=== PATIENT | female | born 1940 | race Caucasian/White ===

== ENCOUNTER 2019-02-12 06:52 | Day surgery (SDC) | payer MEDICARE, OTHER ==
[~2019-02-12 06:52] MED LIST: Midazolam 1 MG/ML 2 ML SDV ONE; fentaNYL 100 MCG/2 ML SDV ONE
[2019-02-12] MEDS ORDERED: Midazolam 1 MG/ML 2 ML SDV IV ONE ×3 (06:53→08:22)
[2019-02-12] MEDS ORDERED: fentaNYL 100 MCG/2 ML SDV IV ONE ×3 (06:53→08:19)
[2019-02-12] MEDS ORDERED: Dextrose 5%-0.45% NaCl 1,000 ML IV SCH (07:00)
--- NOTE | 2019-02-12 11:12 | OR ---
DATE: 02/12/2019 PROCEDURES: Total colonoscopy, NBI, cold snare polypectomy, and multiple pinch biopsies. INSTRUMENT USED: PCF-H190DL Olympus video colonoscope. PREMEDICATIONS: Fentanyl 100 mcg intravenous, Versed 1.5 mg intravenous, nasal O2 cannula. The procedure was done under pulse oximetry, BP recording, and back order clerk. INDICATION: The patient with Hemoccult positive stools and iron deficiency anemia. Colonoscopic examination is done for detection of any polypoid lesions and removal, endoscopic hemostasis therapy if needed. DESCRIPTION OF PROCEDURE: Initial rectal exam was unremarkable. Rigid anoscopy was normal. The colonoscope was passed with ease. Scattered diverticula were noted in the distal left colon along with deformity. The colon was found to be tortuous and redundant, exam a bit prolonged. The scope was passed up to the ileocecal area. Photographs were taken of the cecum, where large circumferential malignant mass was noted, NBI views were obtained, multiple pinch biopsies were obtained and sent for histopathology. No bleeding was noted from any of the visualized areas at the commencement of the examination. There was large amount of fecal material that had to be aspirated. The bowel preparation was found to be adequate, [place] scale 2 in all the regions. No vascular ectasia. No large isolated ulcerations seen. No evidence of diffuse inflammatory bowel disease in the form of friability, contact bleeding, or ulcerations. In the distal ascending colon, 5 mm sized benign-appearing polyp was noted, photograph was taken, cold snare polypectomy was done. The tissue was retrieved and sent for histopathology. Numerous diminutive scattered polyps were noted. More than 1 cm sessile polyps were also noted in the distal ascending colon, as well as mid transverse colon. Probing the proximal sides of folds and flexures using adequate distention and clearing up the stool material, withdrawal of the scope was made. No bleeding was noted from any of the visualized areas at the completion of examination. IMPRESSION: 1. Diverticulosis. 2. Cecal malignant mass. 3. Multiple colonic polyps. The patient tolerated the procedure well. [facility] /[id number]
--- NOTE | 2019-02-12 11:51 | LETTER ---
02/12/2019 Jeannine Stafford MD [address] [place] [address], [place] [address] RE: MYRONJOAO : [address] Stafford: Ms. Joao Simons had colonoscopic examination done this morning and she tolerated the procedure well. I herewith send a copy of the endoscopy note and photographs for your review. Thank you. Sincerely, [facility] /[id number]
[2019-02-12 13:04] VITALS: BP 148/57; PULSE 78
== END 2019-02-12 11:09 | disposition home or self-care (01) ==
LOC: DL.ENDO 06:52
PROVIDERS: ATTEND Internal Medicine Gastroenterology
DX: D12.2 Benign neoplasm of ascending colon (principal); K63.89 Other specified diseases of intestine; D50.9 Iron deficiency anemia, unspecified; Q43.8 Other specified congenital malformations of intestine; K57.30 Diverticulosis of large intestine without perforation or abscess without bleeding; I10 Essential (primary) hypertension; E11.9 Type 2 diabetes mellitus without complications; E78.5 Hyperlipidemia, unspecified; E66.09 Other obesity due to excess calories; Z80.0 Family history of malignant neoplasm of digestive organs; Z90.49 Acquired absence of other specified parts of digestive tract; Z88.0 Allergy status to penicillin; Z88.2 Allergy status to sulfonamides; Z88.1 Allergy status to other antibiotic agents; Z68.33 Body mass index [BMI] 33.0-33.9, adult
CPT/HCPCS: 45380; 45385; 82962; J2250; J3010; J7042

== ENCOUNTER 2019-03-25 10:02 | Inpatient (IN) | payer MEDICARE, OTHER ==
[2019-03-25] MEDS ORDERED: Ondansetron 4 MG Tab.DIS PO PRN (12:37)
[2019-03-25] MEDS ORDERED: Acetaminophen 325 MG Tab PO PRN (12:37)
[2019-03-25] MEDS ORDERED: oxyCODONE 5 MG Tab PO PRN (12:37)
--- NOTE | 2019-03-25 14:47 | PCM.HP ---
H&P History of Present Illness - General Date of Service: 03/25/19 Admit Problem/Dx: Admission Diagnosis/Problem Admission Diagnosis/Problem Weakness Source of Information: Patient, Old Records - History of Present Illness Initial Comments - Free Text/Narative: Ms. Simons is a 79 yo female with past medical history significant for dyslipidemia, hypertension, type diabetes CKD stage III, lower extremity edema, cecal mass concerning for malignancy and is s/p elective laparoscopic-assisted ileocecectomy under general anesthesia. 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 Patient was transferred here for reconditioning. Patient said that she is able to have 2 bowel movements yesterday. No abdominal pain at this point. No other complaints. Patient has Bruno in place and she was told that it should be removed today. Lower Abdomen Pain Score (Numeric/FACES): 3 - Related Data Allergies/Adverse Reactions: Allergies Allergy/AdvReac Type Severity Reaction Status Date / Time ampicillin Allergy Cannot Verified 03/25/19 10:58 Remember metronidazole Allergy Cannot Verified 03/25/19 10:58 Remember Penicillins Allergy Cannot Verified 03/25/19 10:58 Remember sulfamethoxazole Allergy Cannot Verified 03/25/19 10:58 [From Bactrim] Remember Tetracyclines Allergy Cannot Verified 03/25/19 10:58 Remember trimethoprim [From Bactrim] Allergy Cannot Verified 03/25/19 10:58 Remember Home Medications: Home Meds Insulin Lispro [Humalog] 5 units SQ TIDMEALS 04/24/15 [History] Propranolol HCl [Propranolol] 20 mg PO BID 04/24/15 [History] atorvaSTATin [Lipitor] 40 mg PO DAILY 04/24/15 [History] metFORMIN HCl [Metformin HCl] 1,000 mg PO BID 04/24/15 [History] Aspirin [Halfprin] 81 mg PO BEDTIME 07/03/15 [History] Budesonide [Pulmicort] 1 vial INH BID PRN 07/03/15 [History] Insulin Glarg,Human.Rec.Analog [Lantus] 14 units INJECT BEDTIME 07/03/15 [ History] Ipratropium/Albuterol Sulfate [Iprat-Albut 0.5-3(2.5) mg/3 ml] 1 vial INH TID [History] Latanoprost [Xalatan 0.005% Ophth Soln] 1 applic EYEBOTH BEDTIME 07/03/15 [ History] Multivitamin [Multivitamins] 1 tab PO DAILY 07/03/15 [History] Carbidopa/Levodopa [Carbidopa-Levodopa 25-100 Tab] 1.5 tab PO TID 02/11/19 [ History] Midodrine 2.5 mg PO TID 02/11/19 [History] Anastrozole [Arimidex] 1 mg PO DAILY 02/12/19 [History] Docusate Sodium 100 mg PO DAILY PRN 02/12/19 [History] Fludrocortisone [Florinef] 0.1 mg PO DAILY 02/12/19 [History] metOLazone [Metolazone] 2.5 mg PO .MON&Fri02/12/19 [History] Past Medical History HEENT History: Reports: Cataract, Impaired Vision, Sinusitis Cardiovascular History: Reports: High Cholesterol, Hypertension, Other (See Below) Other Cardiovascular History: EDEMA Respiratory History: Reports: COPD, Other (See Below) Other Respiratory History: BRONCHIECTASIS; URI, ?FIBROSIS RECENT DIAGNOSIS Gastrointestinal History: Reports: Chronic Constipation Genitourinary History: Reports: Chronic Renal Insuffiency, Urinary Incontinence , Other (See Below) Other Genitourinary History: CKD STAGE III; CYST OF LEFT KIDNEY FLAME BURNER History: Reports: Musculoskeletal History: Reports: Arthritis, Osteoporosis, Other (See Below) Other Musculoskeletal History: BONE METABOLISM DISORDER Neurological History: Reports: Parkinson's Psychiatric History: Reports: Anxiety, Depression Endocrine/Metabolic History: Reports: Diabetes, Type II, Obesity/BMI 30+, Osteoporosis Hematologic History: Reports: Anemia, Other (See Below) Other Hematologic History: MICROALBUMINURIA Immunologic History: Reports: None Oncologic (Cancer) History: Reports: Breast, Colon Dermatologic History: Reports: None - Infectious Disease History Other Infectious Disease History: DOESN'T RECALL - Past Surgical History Head Surgeries/Procedures: Reports: None HEENT Surgical History: Reports: Cataract Surgery Cardiovascular Surgical History: Reports: None Respiratory Surgical History: Reports: None GI Surgical History: Reports: Cholecystectomy, Colonoscopy, Other (See Below) Other GI Surgeries/Procedures: hemicolectomy Female Surgical History: Reports: None Endocrine Surgical History: Reports: None Neurological Surgical History: Reports: None Musculoskeletal Surgical History: Reports: Knee Replacement, Other (See Below) Other Musculoskeletal Surgeries/Procedures:: BILAT KNEE REPLACEMENT Oncologic Surgical History: Reports: Biopsy of Breast, Lumpectomy Dermatological Surgical History: Reports: None Social & Family History - Family History Family Medical History: Noncontributory - Tobacco Use Smoking Status *Q: Never Smoker Second Hand Smoke Exposure: No - Caffeine Use Caffeine Use: Reports: Coffee, Soda, Tea Other Caffeine Use: SOME - Recreational Drug Use Recreational Drug Use: No H&P Review of Systems - Review of Systems: Review Of Systems: Comprehensive ROS is negative, except as noted in HPI. Exam - Exam Exam: See Below - Vital Signs Vital Signs: Last Vital Signs Temp 36.6 C 03/25/19 12:37 Pulse 66 03/25/19 12:37 Resp 18 03/25/19 12:37 BP 109/61 03/25/19 12:37 Pulse Ox 96 03/25/19 12:37 Weight: 82.735 kg - Exam General: Alert, Oriented HEENT: Conjunctiva Clear, EOMI Lungs: Clear to Auscultation, Normal Respiratory Effort Cardiovascular: Regular Rate, Regular Rhythm GI/Abdominal Exam: Normal Bowel Sounds, Soft, Non-Tender Extremities: Pedal Edema (Faint) Skin: Warm, Dry, Intact Neuro Extensive - Mental Status: Alert, Oriented x3 Psychiatric: Alert, Normal Affect, Normal Mood Problem List Initiated/Reviewed/Updated: Yes Orders Last 24hrs: Active Orders 24 hr Category Date Time Status Patient Status [ADT] Routine ADT 03/25/19 12:37 Active Oxygen Therapy [RC] PRN Care 03/25/19 12:37 Active Up With Assistance [RC] ASDIRECTED Care 03/25/19 12:41 Active Vital Signs [RC] 08,20 Care 03/25/19 12:37 Active OT Evaluation and Treatment [CONS] Routine Cons 03/25/19 12:37 Active PT Evaluation and Treatment [CONS] Routine Cons 03/25/19 12:37 Active Consistent Carbohydrate Diet [DIET] Diet 03/25/19 Dinner Active Acetaminophen [Tylenol] Med 03/25/19 12:37 Active 650 mg PO Q4H PRN Albuterol/Ipratropium [DuoNeb 3.0-0.5 MG/3 ML] Med 03/25/19 21:00 Ordered 1 vial INH TID Anastrozole [Arimidex] Med 03/26/19 09:00 Ordered 1 mg PO DAILY Aspirin [Halfprin] Med 03/25/19 21:00 Ordered 81 mg PO BEDTIME Budesonide [Pulmicort] Med 03/25/19 14:39 Ordered 1 vial INH BID PRN Carbidopa/Levodopa [Sinemet 25-100 mg] Med 03/25/19 21:00 Ordered 1.5 tab PO TID Fludrocortisone [Florinef] Med 03/26/19 09:00 Ordered 0.1 mg PO DAILY Insulin Glarg,Human.Rec.Analog [LantUS] Med 03/25/19 21:00 Ordered 14 unit SUBCUT BEDTIME Insulin Lispro Med 03/25/19 17:00 Ordered 5 units SQ TIDMEALS Latanoprost [Xalatan 0.005% Ophth Soln] Med 03/25/19 21:00 Ordered 1 applic EYEBOTH BEDTIME Midodrine Med 03/25/19 21:00 Ordered 2.5 mg PO TID Ondansetron [Zofran ODT] Med 03/25/19 12:37 Active 4 mg PO Q4H PRN Propranolol [Inderal LA] Med 03/25/19 21:00 Ordered 20 mg PO BID atorvaSTATin [Lipitor] Med 03/26/19 09:00 Ordered 40 mg PO DAILY metFORMIN [Glucophage] Med 03/25/19 21:00 Ordered 1,000 mg PO BID metOLazone [Zaroxolyn] Med 03/25/19 14:45 Ordered 2.5 mg PO .MON&FRI oxyCODONE Med 03/25/19 12:37 Active 5 mg PO Q4H PRN Resuscitation Status Routine Resus Stat 03/25/19 12:37 Ordered Medication Orders Acetaminophen (Tylenol) 650 mg PO Q4H PRN PRN Reason: Pain (Mild 1-3)/fever Ondansetron HCl (Zofran Odt) 4 mg PO Q4H PRN PRN Reason: nausea, able to take PO Oxycodone HCl (Oxycodone) 5 mg PO Q4H PRN PRN Reason: Pain (moderate 4-6) Assessment/Plan Comment:: #deconditioning -PT/OT #Type 2 diabetes -Appears well controlled -Resume home insulin regimen -Continue rest of home meds #Hypertension -Patient had both propranolol and midodrine ordered -We will restart , will consider discontinuing midodrine based on blood pressure #CKD stage III -Noted #Dyslipidemia -Continue Lipitor -Aspirin #COPD -Stable -Continue home breathing treatments # DVT ppx -sequential compressive devices #S/plaparoscopic-assisted ileocecectomyfor cecal mass -Patient follows up with general surgery next week
[2019-03-25] MEDS: Midodrine 2.5 MG Tab PO SCH (17:07)
[2019-03-25] MEDS: Carbidopa/Levodopa 25-100 MG Tab PO SCH (17:07)
[2019-03-25] MEDS: Insulin Lispro 100 Units/ML 3 ML Vial SUBCUT SCH (17:09)
[2019-03-25] MEDS: metFORMIN 500 MG Tab PO SCH (17:10)
[2019-03-25] MEDS: Budesonide 0.5 MG/2 ML Neb Susp INH SCH (17:11)
[2019-03-25] MEDS: Propranolol 20 MG Tab PO SCH (20:55)
[2019-03-25] MEDS: Albuterol/Ipratropium 3.0-0.5 MG/3 ML Neb Soln INH SCH (20:55)
[2019-03-25] MEDS: Aspirin 81 MG Tab.EC PO SCH (20:55)
[2019-03-25] MEDS: Latanoprost 0.005% Ophth Soln 2.5 ML Bottle EYEBOTH SCH (20:56)
[2019-03-25] MEDS: Insulin Glarg,Human.Rec.Analog 100 Unit/ML SUBCUT SCH (21:11)
[2019-03-26] MEDS: Albuterol/Ipratropium 3.0-0.5 MG/3 ML Neb Soln INH SCH ×3 (07:32→21:35)
[2019-03-26] MEDS: Budesonide 0.5 MG/2 ML Neb Susp INH SCH ×2 (07:35→21:37)
[2019-03-26] MEDS: Insulin Lispro 100 Units/ML 3 ML Vial SUBCUT SCH ×3 (08:29→18:07)
[2019-03-26] MEDS: Metolazone 2.5 MG Tab PO SCH (08:30)
[2019-03-26] MEDS: Midodrine 2.5 MG Tab PO SCH ×3 (08:30→16:37)
[2019-03-26] MEDS: Propranolol 20 MG Tab PO SCH ×2 (08:30→21:28)
[2019-03-26] MEDS: metFORMIN 500 MG Tab PO SCH ×2 (08:30→18:06)
[2019-03-26] MEDS: Carbidopa/Levodopa 25-100 MG Tab PO SCH ×3 (08:30→16:36)
[2019-03-26] MEDS: atorvaSTATin 20 MG Tab PO SCH (08:31)
[2019-03-26] MEDS: Fludrocortisone 0.1 MG Tab PO SCH (08:31)
[2019-03-26] MEDS ORDERED: ANASTROZOLE 1 MG PO SCH (09:00)
[2019-03-26] MEDS: ANASTROZOLE 1 MG PO SCH (12:29)
[2019-03-26] MEDS: Aspirin 81 MG Tab.EC PO SCH (21:28)
[2019-03-26] MEDS: Insulin Glarg,Human.Rec.Analog 100 Unit/ML SUBCUT SCH (21:28)
[2019-03-26] MEDS: Latanoprost 0.005% Ophth Soln 2.5 ML Bottle EYEBOTH SCH (21:34)
[2019-03-27] MEDS: Albuterol/Ipratropium 3.0-0.5 MG/3 ML Neb Soln INH SCH ×3 (07:44→20:43)
[2019-03-27] MEDS: Budesonide 0.5 MG/2 ML Neb Susp INH SCH ×2 (07:46→20:48)
[2019-03-27] MEDS: metFORMIN 500 MG Tab PO SCH ×2 (08:33→17:57)
[2019-03-27] MEDS: Insulin Lispro 100 Units/ML 3 ML Vial SUBCUT SCH ×3 (08:35→17:58)
[2019-03-27] MEDS: Midodrine 2.5 MG Tab PO SCH ×3 (08:36→16:15)
[2019-03-27] MEDS: Carbidopa/Levodopa 25-100 MG Tab PO SCH ×3 (08:37→16:15)
[2019-03-27] MEDS: Fludrocortisone 0.1 MG Tab PO SCH (08:39)
[2019-03-27] MEDS: Propranolol 20 MG Tab PO SCH ×2 (08:40→20:44)
[2019-03-27] MEDS: atorvaSTATin 20 MG Tab PO SCH (08:41)
[2019-03-27] MEDS: ANASTROZOLE 1 MG PO SCH (12:09)
[2019-03-27] MEDS: Aspirin 81 MG Tab.EC PO SCH (20:44)
[2019-03-27] MEDS: Latanoprost 0.005% Ophth Soln 2.5 ML Bottle EYEBOTH SCH (20:44)
[2019-03-27] MEDS: Insulin Glarg,Human.Rec.Analog 100 Unit/ML SUBCUT SCH (21:06)
[2019-03-28] MEDS: Budesonide 0.5 MG/2 ML Neb Susp INH SCH ×2 (07:33→20:42)
[2019-03-28] MEDS: Albuterol/Ipratropium 3.0-0.5 MG/3 ML Neb Soln INH SCH ×3 (07:33→20:42)
[2019-03-28] MEDS: Insulin Lispro 100 Units/ML 3 ML Vial SUBCUT SCH ×3 (08:33→17:49)
[2019-03-28] MEDS: metFORMIN 500 MG Tab PO SCH ×2 (08:37→17:48)
[2019-03-28] MEDS: Fludrocortisone 0.1 MG Tab PO SCH (08:38)
[2019-03-28] MEDS: Midodrine 2.5 MG Tab PO SCH ×3 (08:38→15:55)
[2019-03-28] MEDS: Carbidopa/Levodopa 25-100 MG Tab PO SCH ×3 (08:38→15:56)
[2019-03-28] MEDS: Propranolol 20 MG Tab PO SCH ×2 (08:39→20:45)
[2019-03-28] MEDS: atorvaSTATin 20 MG Tab PO SCH (08:39)
[2019-03-28] MEDS: ANASTROZOLE 1 MG PO SCH (12:14)
[2019-03-28] MEDS: Polyethylene Glycol 3350 Powder 17 GM Packet PO SCH (12:15)
[2019-03-28] MEDS: Aspirin 81 MG Tab.EC PO SCH (20:45)
[2019-03-28] MEDS: Insulin Glarg,Human.Rec.Analog 100 Unit/ML SUBCUT SCH (20:45)
[2019-03-28] MEDS: Latanoprost 0.005% Ophth Soln 2.5 ML Bottle EYEBOTH SCH (20:46)
[2019-03-29] MEDS: Budesonide 0.5 MG/2 ML Neb Susp INH SCH ×2 (07:28→20:13)
[2019-03-29] MEDS: Albuterol/Ipratropium 3.0-0.5 MG/3 ML Neb Soln INH SCH ×3 (07:28→20:13)
[2019-03-29] MEDS: Polyethylene Glycol 3350 Powder 17 GM Packet PO SCH (08:40)
[2019-03-29] MEDS: Fludrocortisone 0.1 MG Tab PO SCH (08:40)
[2019-03-29] MEDS: atorvaSTATin 20 MG Tab PO SCH (08:41)
[2019-03-29] MEDS: metFORMIN 500 MG Tab PO SCH ×2 (08:41→17:39)
[2019-03-29] MEDS: Propranolol 20 MG Tab PO SCH ×2 (08:41→20:13)
[2019-03-29] MEDS: Midodrine 2.5 MG Tab PO SCH (08:41)
[2019-03-29] MEDS: Metolazone 2.5 MG Tab PO SCH (08:42)
[2019-03-29] MEDS: Carbidopa/Levodopa 25-100 MG Tab PO SCH ×3 (08:42→16:07)
[2019-03-29] MEDS: Insulin Lispro 100 Units/ML 3 ML Vial SUBCUT SCH ×3 (08:50→17:40)
--- NOTE | 2019-03-29 09:17 | PCM.PN ---
- General Info Date of Service: 03/29/19 Admission Dx/Problem (Free Text): Admission Diagnosis/Problem Admission Diagnosis/Problem Weakness Subjective Update: No acute events. Patient denies any complaints. She did have some lower extremity swelling that she reported being chronic. Dr. Colon office was contacted, and miguel could be removed. - Review of Systems General: Reports: No Symptoms - Patient Data Vitals - Most Recent: Last Vital Signs Temp 36.5 C 03/29/19 07:31 Pulse 65 03/29/19 07:31 Resp 18 03/29/19 07:31 BP 158/60 H 03/29/19 07:31 Pulse Ox 96 03/29/19 07:31 Weight - Most Recent: 82.735 kg I&O - Last 24 Hours: Intake & Output 03/28/19 03/29/19 03/29/19 22:59 06:59 14:59 Intake Total 120 450 Balance 120 450 Lab Results Last 24 Hours: Laboratory Results - last 24 hr 03/28/19 03/28/19 03/28/19 Range/Units 11:49 16:49 20:39 POC Glucose 154 H 94 141 H (83-110) mg/dl 03/29/19 Range/Units 07:50 POC Glucose 75 L (83-110) mg/dl Med Orders - Current: Current Medications Acetaminophen (Tylenol) 650 mg PO Q4H PRN PRN Reason: Pain (Mild 1-3)/fever Albuterol/Ipratropium (Duoneb 3.0-0.5 Mg/3 Ml) 3 ml INH TIDRT [facility] Last Admin: 03/29/19 07:28 Dose: 3 ml Aspirin (Halfprin) 81 mg PO BEDTIME [facility] Last Admin: 03/28/19 20:45 Dose: 81 mg Atorvastatin Calcium (Lipitor) 40 mg PO DAILY [facility] Last Admin: 03/29/19 08:41 Dose: 40 mg Budesonide (Pulmicort) 0.5 mg INH BID@0700,2100 [facility] Last Admin: 03/29/19 07:28 Dose: 0.5 mg Carbidopa/Levodopa (Sinemet 25-100 Mg) 1.5 tab PO TID@0800,1200,1600 [facility] Last Admin: 03/29/19 08:42 Dose: 1.5 tab Fludrocortisone Acetate (Florinef) 0.1 mg PO DAILY [facility] Last Admin: 03/29/19 08:40 Dose: 0.1 mg Insulin Glargine (Lantus) 14 unit SUBCUT BEDTIME [facility] Last Admin: 03/28/19 20:45 Dose: 14 units Insulin Human Lispro (Humalog) 5 unit SUBCUT TIDMEALS [facility] Last Admin: 03/29/19 08:50 Dose: 5 units Latanoprost (Xalatan 0.005% Ophth Soln) 0 ml EYEBOTH BEDTIME [facility] Last Admin: 03/28/19 20:46 Dose: 1 drop Metformin HCl (Glucophage) 1,000 mg PO BIDMEALS [facility] Last Admin: 03/29/19 08:41 Dose: 1,000 mg Metolazone (Zaroxolyn) 2.5 mg PO MoFr@0800 [facility] Last Admin: 03/29/19 08:42 Dose: 2.5 mg Midodrine (Midodrine) 2.5 mg PO TID@0800,1200,1600 [facility] Last Admin: 03/29/19 08:41 Dose: 2.5 mg Anastrozole [ Arimidex] 1 Mg Pt Own Med 1 mg PO DAILY@1200 [facility] Last Admin: 03/28/19 12:14 Dose: 1 mg Ondansetron HCl (Zofran Odt) 4 mg PO Q4H PRN PRN Reason: nausea, able to take PO Oxycodone HCl (Oxycodone) 5 mg PO Q4H PRN PRN Reason: Pain (moderate 4-6) Polyethylene Glycol (Miralax) 17 gm PO DAILY [facility] Last Admin: 03/29/19 08:40 Dose: 17 gm Propranolol HCl (Inderal) 20 mg PO BID [facility] Last Admin: 03/29/19 08:41 Dose: 20 mg Discontinued Medications Budesonide (Pulmicort) 0.5 mg INH BIDRT [facility] Last Admin: 03/26/19 07:35 Dose: 0.5 mg - Exam General: Alert, Oriented Lungs: Clear to Auscultation, Normal Respiratory Effort Cardiovascular: Regular Rate, Regular Rhythm GI/Abdominal Exam: Normal Bowel Sounds, Soft, Non-Tender Extremities: Normal Inspection, Pedal Edema Skin: Warm, Dry, Intact Psy/Mental Status: Alert, Normal Affect, Normal Mood Sepsis Event Note - Evaluation Sepsis Screening Result: No Definite Risk - Focused Exam Vital Signs: Vital Signs Temp Pulse Resp BP Pulse Ox Pulse Ox 03/29/19 07:31 36.5 C 65 18 158/60 H 96 03/29/19 07:29 65 96 Date Exam was Performed: 03/29/19 Time Exam was Performed: 10:09 - Problem List Review Problem List Initiated/Reviewed/Updated: Yes - My Orders Last 24 Hours: My Active Orders 03/28/19 12:00 polyethylene glycoL 3350 [MiraLAX] 17 gm PO DAILY - Plan Plan:: #deconditioning -PT/OT #Type 2 diabetes -Appears well controlled -Resume home insulin regimen -Continue rest of home meds #Hypertension -Patient had both propranolol and midodrine ordered -We will discontinue midodrine #CKD stage III -Noted #Dyslipidemia -Continue Lipitor -Aspirin #COPD -Stable -Continue home breathing treatments # DVT ppx -sequential compressive devices #S/plaparoscopic-assisted ileocecectomyfor cecal mass -Per Dr. Colon miguel can be removed
[2019-03-29] MEDS: ANASTROZOLE 1 MG PO SCH (13:10)
[2019-03-29] MEDS: Insulin Glarg,Human.Rec.Analog 100 Unit/ML SUBCUT SCH (20:13)
[2019-03-29] MEDS: Aspirin 81 MG Tab.EC PO SCH (20:13)
[2019-03-29] MEDS: Latanoprost 0.005% Ophth Soln 2.5 ML Bottle EYEBOTH SCH (20:14)
[2019-03-30] MEDS: Albuterol/Ipratropium 3.0-0.5 MG/3 ML Neb Soln INH SCH ×3 (07:40→20:29)
[2019-03-30] MEDS: Budesonide 0.5 MG/2 ML Neb Susp INH SCH ×2 (07:40→20:36)
[2019-03-30] MEDS: Polyethylene Glycol 3350 Powder 17 GM Packet PO SCH (08:53)
[2019-03-30] MEDS: metFORMIN 500 MG Tab PO SCH ×2 (08:55→17:37)
[2019-03-30] MEDS: Fludrocortisone 0.1 MG Tab PO SCH (08:55)
[2019-03-30] MEDS: Carbidopa/Levodopa 25-100 MG Tab PO SCH ×3 (08:55→16:30)
[2019-03-30] MEDS: Insulin Lispro 100 Units/ML 3 ML Vial SUBCUT SCH ×3 (08:56→17:37)
[2019-03-30] MEDS: atorvaSTATin 20 MG Tab PO SCH (08:56)
[2019-03-30] MEDS: Propranolol 20 MG Tab PO SCH ×2 (08:56→20:29)
[2019-03-30] MEDS: ANASTROZOLE 1 MG PO SCH (12:39)
[2019-03-30] MEDS ORDERED: Lactulose Soln 10 GM/15 ML 30 ML UD Cup PO PRN (13:15)
[2019-03-30] MEDS: Aspirin 81 MG Tab.EC PO SCH (20:29)
[2019-03-30] MEDS: Latanoprost 0.005% Ophth Soln 2.5 ML Bottle EYEBOTH SCH (20:30)
[2019-03-30] MEDS: Insulin Glarg,Human.Rec.Analog 100 Unit/ML SUBCUT SCH (21:18)
[2019-03-31] MEDS: Albuterol/Ipratropium 3.0-0.5 MG/3 ML Neb Soln INH SCH ×3 (07:35→21:39)
[2019-03-31] MEDS: Budesonide 0.5 MG/2 ML Neb Susp INH SCH ×2 (07:43→21:39)
[2019-03-31] MEDS: metFORMIN 500 MG Tab PO SCH ×2 (08:41→17:44)
[2019-03-31] MEDS: Carbidopa/Levodopa 25-100 MG Tab PO SCH ×3 (08:41→16:08)
[2019-03-31] MEDS: Propranolol 20 MG Tab PO SCH ×2 (08:41→21:39)
[2019-03-31] MEDS: Fludrocortisone 0.1 MG Tab PO SCH (08:42)
[2019-03-31] MEDS: atorvaSTATin 20 MG Tab PO SCH (08:42)
[2019-03-31] MEDS: Polyethylene Glycol 3350 Powder 17 GM Packet PO SCH (08:43)
[2019-03-31] MEDS: Insulin Lispro 100 Units/ML 3 ML Vial SUBCUT SCH ×3 (08:44→17:44)
[2019-03-31] MEDS: Lactulose Soln 10 GM/15 ML 30 ML UD Cup PO SCH ×2 (11:23→19:03)
[2019-03-31] MEDS: ANASTROZOLE 1 MG PO SCH (12:27)
[2019-03-31] MEDS ORDERED: Benzocaine/Docusate Sodium 20-283 MG/5 ML Enema RECTAL ONE (16:23)
[2019-03-31] MEDS: Aspirin 81 MG Tab.EC PO SCH (21:39)
[2019-03-31] MEDS: Latanoprost 0.005% Ophth Soln 2.5 ML Bottle EYEBOTH SCH (21:39)
[2019-03-31] MEDS: Insulin Glarg,Human.Rec.Analog 100 Unit/ML SUBCUT SCH (21:45)
[2019-04-01] MEDS: Lactulose Soln 10 GM/15 ML 30 ML UD Cup PO SCH ×3 (06:03→21:09)
[2019-04-01] MEDS: Budesonide 0.5 MG/2 ML Neb Susp INH SCH ×2 (07:22→21:09)
[2019-04-01] MEDS: Albuterol/Ipratropium 3.0-0.5 MG/3 ML Neb Soln INH SCH ×3 (07:22→21:08)
[2019-04-01] MEDS: Polyethylene Glycol 3350 Powder 17 GM Packet PO SCH (08:08)
[2019-04-01] MEDS: atorvaSTATin 20 MG Tab PO SCH (08:09)
[2019-04-01] MEDS: metFORMIN 500 MG Tab PO SCH ×2 (08:09→17:49)
[2019-04-01] MEDS: Carbidopa/Levodopa 25-100 MG Tab PO SCH ×3 (08:09→15:17)
[2019-04-01] MEDS: Fludrocortisone 0.1 MG Tab PO SCH (08:09)
[2019-04-01] MEDS: Propranolol 20 MG Tab PO SCH ×2 (08:09→21:09)
[2019-04-01] MEDS: Insulin Lispro 100 Units/ML 3 ML Vial SUBCUT SCH ×3 (08:11→17:50)
[2019-04-01] MEDS: ANASTROZOLE 1 MG PO SCH (11:52)
[2019-04-01] MEDS: Insulin Glarg,Human.Rec.Analog 100 Unit/ML SUBCUT SCH (21:06)
[2019-04-01] MEDS: Aspirin 81 MG Tab.EC PO SCH (21:09)
[2019-04-01] MEDS: Latanoprost 0.005% Ophth Soln 2.5 ML Bottle EYEBOTH SCH (21:09)
[2019-04-02] MEDS: Lactulose Soln 10 GM/15 ML 30 ML UD Cup PO SCH ×3 (06:38→21:11)
[2019-04-02] MEDS: Budesonide 0.5 MG/2 ML Neb Susp INH SCH ×2 (07:25→20:19)
[2019-04-02] MEDS: Albuterol/Ipratropium 3.0-0.5 MG/3 ML Neb Soln INH SCH ×3 (07:25→20:19)
[2019-04-02] MEDS: Insulin Lispro 100 Units/ML 3 ML Vial SUBCUT SCH ×3 (08:21→17:11)
[2019-04-02] MEDS: atorvaSTATin 20 MG Tab PO SCH (08:22)
[2019-04-02] MEDS: Propranolol 20 MG Tab PO SCH ×2 (08:22→20:19)
[2019-04-02] MEDS: Metolazone 2.5 MG Tab PO SCH (08:23)
[2019-04-02] MEDS: Fludrocortisone 0.1 MG Tab PO SCH (08:23)
[2019-04-02] MEDS: metFORMIN 500 MG Tab PO SCH ×2 (08:23→17:09)
[2019-04-02] MEDS: Carbidopa/Levodopa 25-100 MG Tab PO SCH ×3 (08:23→17:09)
[2019-04-02] MEDS: Polyethylene Glycol 3350 Powder 17 GM Packet PO SCH (08:23)
[2019-04-02] MEDS: ANASTROZOLE 1 MG PO SCH (12:55)
[2019-04-02] MEDS: Aspirin 81 MG Tab.EC PO SCH (20:19)
[2019-04-02] MEDS: Latanoprost 0.005% Ophth Soln 2.5 ML Bottle EYEBOTH SCH (20:20)
[2019-04-02] MEDS: Insulin Glarg,Human.Rec.Analog 100 Unit/ML SUBCUT SCH (21:10)
[2019-04-03] MEDS: Lactulose Soln 10 GM/15 ML 30 ML UD Cup PO SCH ×3 (05:46→23:04)
[2019-04-03] MEDS: Albuterol/Ipratropium 3.0-0.5 MG/3 ML Neb Soln INH SCH ×3 (07:20→20:27)
[2019-04-03] MEDS: Budesonide 0.5 MG/2 ML Neb Susp INH SCH ×3 (07:20→20:27)
[2019-04-03] MEDS: metFORMIN 500 MG Tab PO SCH ×2 (08:19→17:22)
[2019-04-03] MEDS: Fludrocortisone 0.1 MG Tab PO SCH (08:20)
[2019-04-03] MEDS: Carbidopa/Levodopa 25-100 MG Tab PO SCH ×3 (08:20→16:09)
[2019-04-03] MEDS: atorvaSTATin 20 MG Tab PO SCH (08:21)
[2019-04-03] MEDS: Propranolol 20 MG Tab PO SCH ×2 (08:21→20:26)
[2019-04-03] MEDS: Insulin Lispro 100 Units/ML 3 ML Vial SUBCUT SCH ×3 (08:22→17:23)
[2019-04-03] MEDS: Polyethylene Glycol 3350 Powder 17 GM Packet PO SCH (08:23)
[2019-04-03] MEDS ORDERED: Sodium Chloride 0.9% 10 ML Syringe FLUSH PRN (10:00)
[2019-04-03] MEDS: ANASTROZOLE 1 MG PO SCH (12:47)
[2019-04-03] MEDS ORDERED: Budesonide 0.5 MG/2 ML Neb Susp ONE (14:48)
[2019-04-03] MEDS: Aspirin 81 MG Tab.EC PO SCH (20:26)
[2019-04-03] MEDS: Latanoprost 0.005% Ophth Soln 2.5 ML Bottle EYEBOTH SCH (20:27)
[2019-04-03] MEDS: Insulin Glarg,Human.Rec.Analog 100 Unit/ML SUBCUT SCH (21:05)
[2019-04-04] MEDS: Lactulose Soln 10 GM/15 ML 30 ML UD Cup PO SCH ×3 (05:47→21:35)
[2019-04-04] MEDS: Budesonide 0.5 MG/2 ML Neb Susp INH SCH ×2 (07:29→21:35)
[2019-04-04] MEDS: Albuterol/Ipratropium 3.0-0.5 MG/3 ML Neb Soln INH SCH ×3 (07:29→21:34)
[2019-04-04] MEDS: atorvaSTATin 20 MG Tab PO SCH (08:27)
[2019-04-04] MEDS: metFORMIN 500 MG Tab PO SCH ×2 (08:28→17:34)
[2019-04-04] MEDS: Fludrocortisone 0.1 MG Tab PO SCH (08:28)
[2019-04-04] MEDS: Propranolol 20 MG Tab PO SCH ×2 (08:28→21:34)
[2019-04-04] MEDS: Carbidopa/Levodopa 25-100 MG Tab PO SCH ×3 (08:29→15:44)
[2019-04-04] MEDS: Insulin Lispro 100 Units/ML 3 ML Vial SUBCUT SCH ×3 (08:30→17:06)
[2019-04-04] MEDS: Polyethylene Glycol 3350 Powder 17 GM Packet PO SCH (08:34)
[2019-04-04] MEDS: ANASTROZOLE 1 MG PO SCH (12:22)
[2019-04-04] MEDS ORDERED: Insulin Glarg,Human.Rec.Analog 100 Unit/ML SUBCUT SCH (21:00)
[2019-04-04] MEDS: Aspirin 81 MG Tab.EC PO SCH (21:34)
[2019-04-04] MEDS: Latanoprost 0.005% Ophth Soln 2.5 ML Bottle EYEBOTH SCH (21:36)
[2019-04-05] MEDS: Lactulose Soln 10 GM/15 ML 30 ML UD Cup PO SCH ×2 (05:46→14:54)
[2019-04-05] MEDS: Albuterol/Ipratropium 3.0-0.5 MG/3 ML Neb Soln INH SCH (07:32)
[2019-04-05] MEDS: Budesonide 0.5 MG/2 ML Neb Susp INH SCH (07:32)
[2019-04-05 07:59] VITALS: BP 161/60; PULSE 72
[2019-04-05] MEDS: Polyethylene Glycol 3350 Powder 17 GM Packet PO SCH (08:38)
[2019-04-05] MEDS: Metolazone 2.5 MG Tab PO SCH (08:39)
[2019-04-05] MEDS: Carbidopa/Levodopa 25-100 MG Tab PO SCH ×2 (08:40→14:54)
[2019-04-05] MEDS: Propranolol 20 MG Tab PO SCH (08:40)
[2019-04-05] MEDS: Fludrocortisone 0.1 MG Tab PO SCH (08:40)
[2019-04-05] MEDS: Insulin Lispro 100 Units/ML 3 ML Vial SUBCUT SCH ×2 (08:41→14:54)
[2019-04-05] MEDS: atorvaSTATin 20 MG Tab PO SCH (08:41)
[2019-04-05] MEDS: metFORMIN 500 MG Tab PO SCH (08:41)
--- NOTE | 2019-04-05 09:53 | PCM.DCSUM1 ---
Discharge Summary - Hospital Course Free Text/Narrative:: Ms. Simons is a 79 yo female with past medical history significant for dyslipidemia, hypertension, type diabetes CKD stage III, lower extremity edema, cecal mass concerning for malignancy and is s/p elective laparoscopic-assisted ileocecectomy under general anesthesia. 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 Patient was transferred here for reconditioning. Her stay was uncomplicated. She was discharged home in stable condition. Diagnosis: Stroke: No - Discharge Data Discharge Date: 04/05/19 Discharge Disposition: Home, Self-Care 01 Condition: Good - Referral to Home Health Primary Care Physician: Dakota Dotson MD - Patient Summary/Data Consults: Consultations 03/25/19 12:37 OT Evaluation and Treatment [CONS] Routine PT Evaluation and Treatment [CONS] Routine - Patient Instructions Diet: Heart Healthy Diet Activity: As Tolerated Driving: May Drive Today Showering/Bathing: June Shower Wound/Incision Care: Keep Operative Site/Wound Site Clean and Dry Notify Provider of: Fever, Increased Pain, Swelling and Redness, Nausea and/or Vomiting - Discharge Plan *PRESCRIPTION DRUG MONITORING PROGRAM REVIEWED*: Not Applicable *COPY OF PRESCRIPTION DRUG MONITORING REPORT IN PATIENT PERICO: Not Applicable Prescriptions/Med Rec: oxyCODONE 5 mg PO Q6HR PRN #10 tablet PRN Reason: Pain (Moderate 4-6) amLODIPine [Norvasc] 2.5 mg PO DAILY #30 tablet Home Medications: Home Meds Insulin Lispro [Humalog] 5 units SQ TIDMEALS 04/24/15 [History] Propranolol HCl [Propranolol] 20 mg PO BID 04/24/15 [History] atorvaSTATin [Lipitor] 40 mg PO DAILY 04/24/15 [History] metFORMIN HCl [Metformin HCl] 1,000 mg PO BID 04/24/15 [History] Aspirin [Halfprin] 81 mg PO BEDTIME 07/03/15 [History] Budesonide [Pulmicort] 1 vial INH BID PRN 07/03/15 [History] Insulin Glarg,Human.Rec.Analog [Lantus] 14 units INJECT BEDTIME 07/03/15 [ History] Ipratropium/Albuterol Sulfate [Iprat-Albut 0.5-3(2.5) mg/3 ml] 1 vial INH TID [History] Latanoprost [Xalatan 0.005% Ophth Soln] 1 applic EYEBOTH BEDTIME 07/03/15 [ History] Multivitamin [Multivitamins] 1 tab PO DAILY 07/03/15 [History] Carbidopa/Levodopa [Carbidopa-Levodopa 25-100 Tab] 1.5 tab PO TID 02/11/19 [ History] Anastrozole [Arimidex] 1 mg PO DAILY 02/12/19 [History] Docusate Sodium 100 mg PO DAILY PRN 02/12/19 [History] Fludrocortisone [Florinef] 0.1 mg PO DAILY 02/12/19 [History] metOLazone [Metolazone] 2.5 mg PO .MON&FRI 02/12/19 [History] amLODIPine [Norvasc] 2.5 mg PO DAILY #30 tablet 04/05/19 [Rx] oxyCODONE 5 mg PO Q6HR PRN #10 tablet 04/05/19 [Rx] Patient Handouts: Oxycodone tablets or capsules, Amlodipine tablets - Discharge Summary/Plan Comment DC Time >30 min.: Yes - General Info Date of Service: 04/05/19 Admission Dx/Problem (Free Text: Admission Diagnosis/Problem Admission Diagnosis/Problem Weakness Subjective Update: No acute events. Patient denies any complaints. Functional Status: Reports: Pain Controlled - Review of Systems General: Reports: No Symptoms HEENT: Reports: No Symptoms Pulmonary: Reports: No Symptoms Cardiovascular: Reports: No Symptoms Gastrointestinal: Reports: No Symptoms Genitourinary: Reports: No Symptoms Musculoskeletal: Reports: No Symptoms Skin: Reports: No Symptoms Neurological: Reports: No Symptoms Psychiatric: Reports: No Symptoms - Patient Data Vitals - Most Recent: Last Vital Signs Temp 98.3 F 04/05/19 07:58 Pulse 72 04/05/19 07:58 Resp 20 04/05/19 07:58 BP 161/60 H 04/05/19 07:58 Pulse Ox 97 04/05/19 07:58 Weight - Most Recent: 178 lb 11.2 oz I&O - Last 24 hours: Intake & Output 04/04/19 04/05/19 04/05/19 22:59 06:59 14:59 Intake Total 200 Balance 200 Lab Results - Last 24 hrs: Laboratory Results - last 24 hr 02/04/04/19 04/04/19 Range/Units 11:51 17:03 20:52 POC Glucose 92 95 127 H (83-110) mg/dl 04/05/19 Range/Units 07:52 POC Glucose 78 L (83-110) mg/dl Med Orders - Current: Current Medications Acetaminophen (Tylenol) 650 mg PO Q4H PRN PRN Reason: Pain (Mild 1-3)/fever Albuterol/Ipratropium (Duoneb 3.0-0.5 Mg/3 Ml) 3 ml INH TIDRT [facility] Last Admin: 04/05/19 07:32 Dose: 3 ml Aspirin (Halfprin) 81 mg PO BEDTIME [facility] Last Admin: 04/04/19 21:34 Dose: 81 mg Atorvastatin Calcium (Lipitor) 40 mg PO DAILY [facility] Last Admin: 04/05/19 08:41 Dose: 40 mg Budesonide (Pulmicort) 0.5 mg INH BID@0700,2100 [facility] Last Admin: 04/05/19 07:32 Dose: 0.5 mg Carbidopa/Levodopa (Sinemet 25-100 Mg) 1.5 tab PO TID@0800,1200,1600 [facility] Last Admin: 04/05/19 08:40 Dose: 1.5 tab Fludrocortisone Acetate (Florinef) 0.1 mg PO DAILY [facility] Last Admin: 04/05/19 08:40 Dose: 0.1 mg Insulin Glargine (Lantus) 10 unit SUBCUT BEDTIME [facility] Last Admin: 04/04/19 21:36 Dose: 10 units Insulin Human Lispro (Humalog) 5 unit SUBCUT TIDMEALS [facility] Last Admin: 04/05/19 08:41 Dose: Not Given Lactulose (Cephulac) 30 gm PO 0600,1400,2200 [facility] Last Admin: 04/05/19 05:46 Dose: Not Given Latanoprost (Xalatan 0.005% Ophth Soln) 0 ml EYEBOTH BEDTIME [facility] Last Admin: 04/04/19 21:36 Dose: 1 drop Metformin HCl (Glucophage) 1,000 mg PO BIDMEALS [facility] Last Admin: 04/05/19 08:41 Dose: 1,000 mg Metolazone (Zaroxolyn) 2.5 mg PO MoFr@0800 [facility] Last Admin: 04/05/19 08:39 Dose: 2.5 mg Anastrozole [ Arimidex] 1 Mg Pt Own Med 1 mg PO DAILY@1200 [facility] Last Admin: 04/04/19 12:22 Dose: 1 mg Ondansetron HCl (Zofran Odt) 4 mg PO Q4H PRN PRN Reason: nausea, able to take PO Oxycodone HCl (Oxycodone) 5 mg PO Q4H PRN PRN Reason: Pain (moderate 4-6) Polyethylene Glycol (Miralax) 17 gm PO DAILY [facility] Last Admin: 04/05/19 08:38 Dose: 17 gm Propranolol HCl (Inderal) 20 mg PO BID [facility] Last Admin: 04/05/19 08:40 Dose: 20 mg Senna/Docusate Sodium (Senna Plus) 1 tab PO DAILY [facility] Last Admin: 04/05/19 08:39 Dose: 1 tab Discontinued Medications Budesonide (Pulmicort) 0.5 mg INH BIDRT [facility] Last Admin: 03/26/19 07:35 Dose: 0.5 mg Budesonide (Pulmicort) Confirm Administered Dose 0.5 mg .ROUTE .STK-MED ONE Stop: 04/03/19 14:49 Last Admin: 04/03/19 15:10 Dose: Not Given Docusate Sodium/Benzocaine (Enemeez Plus Mini Enema) 1 each RECTAL ONETIME ONE Stop: 03/31/19 16:24 Last Admin: 03/31/19 17:45 Dose: 1 each Insulin Glargine (Lantus) 14 unit SUBCUT BEDTIME [facility] Last Admin: 04/03/19 21:05 Dose: 14 units Lactulose (Cephulac) 20 gm PO DAILY PRN PRN Reason: Constipation Last Admin: 03/30/19 13:48 Dose: 20 gm Lactulose (Cephulac) 30 gm PO Q8H [facility] Last Admin: 03/31/19 19:03 Dose: 30 gm Midodrine (Midodrine) 2.5 mg PO TID@0800,1200,1600 [facility] Last Admin: 03/29/19 08:41 Dose: 2.5 mg - Exam Quality Assessment: Reports: DVT Prophylaxis General: Reports: Alert, Oriented HEENT: Reports: Pupils Equal, Pupils Reactive, EOMI, Mucous Membr. Moist/[place] Neck: Reports: Supple Lungs: Reports: Clear to Auscultation, Normal Respiratory Effort Cardiovascular: Reports: Regular Rate, Regular Rhythm GI/Abdominal Exam: Normal Bowel Sounds, Soft, Non-Tender, No Organomegaly, No Distention, No Abnormal Bruit, No Mass, Pelvis Stable (Female) Exam: Normal External Exam, Normal Speculum Exam, Normal Bimanual Exam Rectal (Female) Exam: Normal Exam, Normal Rectal Tone Back Exam: Reports: Normal Inspection, Full Range of Motion Extremities: Normal Inspection, Normal Range of Motion, Non-Tender, No Pedal Edema, Normal Capillary Refill Skin: Reports: Warm, Dry, Intact Wound/Incisions: Reports: Healing Well Neurological: Reports: No New Focal Deficit Psy/Mental Status: Reports: Alert, Normal Affect, Normal Mood
[2019-04-05] MEDS: ANASTROZOLE 1 MG PO SCH (14:53)
== END 2019-04-05 12:31 | disposition home or self-care (01) | DRG 948 ==
LOC: DL.MS 12:24
PROVIDERS: ADMIT Internal Medicine; ATTEND Student in an Organized Health Care Education/Training Program
DX: R53.1 Weakness (principal); E78.5 Hyperlipidemia, unspecified; I12.9 Hypertensive chronic kidney disease with stage 1 through stage 4 chronic kidney disease, or unspecified chronic kidney disease; E11.22 Type 2 diabetes mellitus with diabetic chronic kidney disease; N18.3 Chronic kidney disease, stage 3 (moderate); H54.7 Unspecified visual loss; E78.00 Pure hypercholesterolemia, unspecified; J44.9 Chronic obstructive pulmonary disease, unspecified; K59.09 Other constipation; R32 Unspecified urinary incontinence; N28.1 Cyst of kidney, acquired; M19.90 Unspecified osteoarthritis, unspecified site; M81.0 Age-related osteoporosis without current pathological fracture; E88.89 Other specified metabolic disorders; G20 Parkinson's disease; F41.9 Anxiety disorder, unspecified; F32.9 Major depressive disorder, single episode, unspecified; E66.9 Obesity, unspecified; D64.9 Anemia, unspecified; R80.9 Proteinuria, unspecified; Z98.49 Cataract extraction status, unspecified eye; Z90.49 Acquired absence of other specified parts of digestive tract; Z88.1 Allergy status to other antibiotic agents; Z88.0 Allergy status to penicillin; Z88.8 Allergy status to other drugs, medicaments and biological substances; Z88.2 Allergy status to sulfonamides; Z79.4 Long term (current) use of insulin; Z79.82 Long term (current) use of aspirin; Z79.899 Other long term (current) drug therapy; Z96.653 Presence of artificial knee joint, bilateral; Z68.38 Body mass index [BMI] 38.0-38.9, adult
CPT/HCPCS: 82962; 94640; 97110-GO; 97110-GP; 97116-GP; 97161-GP; 97165-GO; 97530-GO; 97535-GO; A9270-GY; J1815; J1815-GY; J7620-GY

== ENCOUNTER 2020-05-14 11:07 | Observation (INO) | payer MEDICARE, OTHER ==
[~2020-05-14 11:07] MED LIST changes: +50% Dextrose in Water 50 ML Syringe IVPUSH ONE; +50% Dextrose in Water 50 ML Syringe ONE; -Midazolam 1 MG/ML 2 ML SDV ONE; -fentaNYL 100 MCG/2 ML SDV ONE
[2020-05-14 11:40] LABS: ANION GAP 15.9 mEq/L (7-13)
--- NOTE | 2020-05-14 12:43 | EDM.PDOC ---
ED HPI GENERAL MEDICAL PROBLEM - General Chief Complaint: General Stated Complaint: AMBULANCE Time Seen by Provider: 05/14/20 11:25 Source of Information: Reports: Patient, Family History Limitations: Reports: No Limitations - History of Present Illness INITIAL COMMENTS - FREE TEXT/NARRATIVE: This 80 yo female patient was brought to the ED by ambulance due to diffuse body aches, difficulties ambulating and altered mentation. The patient's reports the patient slept about 1 hour later than normal this morning. When he attempted to get her up, she was very weak and slid to the floor. The patient's called EMS for transport and the patient had diffuse pain with any pressure to her chest, hips and legs. The patient has a history of Parkinson's disease, diabetes and cancer (breast, colon and nose). The patient has been taking her medications as prescribed. The patient's reports the patient did have some "jerking" this morning when he was sitting by her waiting for EMS. The patient's reports she has been having increased lower extremity weakness. Onset: Today Duration: Improving Quality: Reports: Other Severity: Moderate Improves with: Reports: None Worsens with: Reports: None Context: Reports: Other Associated Symptoms: Reports: Confusion, Weakness - Related Data Allergies Allergy/AdvReac Type Severity Reaction Status Date / Time ampicillin Allergy Cannot Verified 03/25/19 10:58 Remember metronidazole Allergy Cannot Verified 03/25/19 10:58 Remember Penicillins Allergy Cannot Verified 03/25/19 10:58 Remember sulfamethoxazole Allergy Cannot Verified 03/25/19 10:58 [From Bactrim] Remember Tetracyclines Allergy Cannot Verified 03/25/19 10:58 Remember trimethoprim [From Bactrim] Allergy Cannot Verified 03/25/19 10:58 Remember Home Meds: Home Meds Insulin Lispro [Humalog] 5 units SQ TIDMEALS 04/24/15 [History] atorvaSTATin [Lipitor] 40 mg PO DAILY 04/24/15 [History] metFORMIN HCl [Metformin HCl] 1,000 mg PO BID 04/24/15 [History] Aspirin [Halfprin] 81 mg PO BEDTIME 07/03/15 [History] Budesonide [Pulmicort] 1 vial INH BID PRN 07/03/15 [History] Insulin Glarg,Human.Rec.Analog [Lantus] 14 units INJECT BEDTIME 07/03/15 [History] Latanoprost [Xalatan 0.005% Ophth Soln] 1 applic EYEBOTH BEDTIME 07/03/15 [History] Multivitamin [Multivitamins] 1 tab PO DAILY 07/03/15 [History] Carbidopa/Levodopa [Carbidopa-Levodopa 25-100 Tab] 2 tab PO TID 02/11/19 [History] Anastrozole [Arimidex] 1 mg PO DAILY 02/12/19 [History] Fludrocortisone [Florinef] 0.1 mg PO DAILY 02/12/19 [History] Midodrine 5 mg PO TID 05/14/20 [History] Oxybutynin Chloride [Oxybutynin Chloride ER] 10 mg PO DAILY 05/14/20 [History] guaiFENesin [Mucinex] 600 mg PO DAILY 05/14/20 [History] Past Medical History HEENT History: Reports: Cataract, Impaired Vision, Sinusitis Cardiovascular History: Reports: High Cholesterol, Hypertension, Other (See Below) Other Cardiovascular History: EDEMA Respiratory History: Reports: COPD, Other (See Below) Other Respiratory History: BRONCHIECTASIS; URI, ?FIBROSIS RECENT DIAGNOSIS Gastrointestinal History: Reports: Chronic Constipation Genitourinary History: Reports: Chronic Renal Insuffiency, Urinary Incontinence, Other (See Below) Other Genitourinary History: CKD STAGE III; CYST OF LEFT KIDNEY STAKING TECHNICIAN History: Reports: Musculoskeletal History: Reports: Arthritis, Osteoporosis, Other (See Below) Other Musculoskeletal History: BONE METABOLISM DISORDER Neurological History: Reports: Parkinson's Psychiatric History: Reports: Anxiety, Depression Endocrine/Metabolic History: Reports: Diabetes, Type II, Obesity/BMI 30+, Osteoporosis Hematologic History: Reports: Anemia, Other (See Below) Other Hematologic History: MICROALBUMINURIA Immunologic History: Reports: None Oncologic (Cancer) History: Reports: Breast, Colon Dermatologic History: Reports: None - Infectious Disease History Other Infectious Disease History: DOESN'T RECALL - Past Surgical History Head Surgeries/Procedures: Reports: None HEENT Surgical History: Reports: Cataract Surgery Cardiovascular Surgical History: Reports: None Respiratory Surgical History: Reports: None GI Surgical History: Reports: Cholecystectomy, Colonoscopy, Other (See Below) Other GI Surgeries/Procedures: hemicolectomy Female Surgical History: Reports: None Endocrine Surgical History: Reports: None Neurological Surgical History: Reports: None Musculoskeletal Surgical History: Reports: Knee Replacement, Other (See Below) Other Musculoskeletal Surgeries/Procedures:: BILAT KNEE REPLACEMENT Oncologic Surgical History: Reports: Biopsy of Breast, Lumpectomy Dermatological Surgical History: Reports: None Social & Family History - Family History Family Medical History: No Pertinent Family History - Tobacco Use Tobacco Use Status *Q: Never Tobacco User - Caffeine Use Caffeine Use: Reports: Coffee Other Caffeine Use: SOME - Recreational Drug Use Recreational Drug Use: No ED ROS GENERAL - Review of Systems Review Of Systems: Comprehensive ROS is negative, except as noted in HPI. ED EXAM, GENERAL - Physical Exam Exam: See Below Exam Limited By: No Limitations General Appearance: Alert, Moderate Distress, Obese Eye Exam: Bilateral Eye: EOMI, Normal Inspection, PERRL Ears: Normal External Exam, Normal Canal, Hearing Grossly Normal, Normal TMs Nose: Normal Inspection, Normal Mucosa, No Blood Throat/Mouth: Normal Inspection, Normal Lips, Normal Teeth, Normal Gums, Normal Oropharynx, Normal Voice, No Airway Compromise Head: Atraumatic, Normocephalic Neck: Normal Inspection, Supple, Non-Tender, Full Range of Motion Respiratory/Chest: No Respiratory Distress, Lungs Clear, Normal Breath Sounds, No Accessory Muscle Use, Chest Non-Tender Cardiovascular: Normal Peripheral Pulses, Regular Rate, Rhythm, No Edema, No Gallop, No JVD, No Murmur, No Rub GI/Abdominal: Normal Bowel Sounds, Soft, Non-Tender, No Organomegaly, No Distention, No Abnormal Bruit, No Mass (Female) Exam: Deferred Rectal (Female) Exam: Deferred Back Exam: Normal Inspection, Full Range of Motion, NT Extremities: Other (generalized pain with palpation) Neurological: Alert, Oriented, CN II-XII Intact, Normal Cognition, Normal Gait, Normal Reflexes, No Motor/Sensory Deficits Psychiatric: Normal Affect, Normal Mood Skin Exam: Warm, Dry, Intact, Normal Color, No Rash Lymphatic: No Adenopathy Course - Vital Signs Last Recorded V/S: Last Vital Signs Temp 35.8 C L 05/14/20 11:11 Pulse 87 05/14/20 11:11 Resp 18 05/14/20 11:11 BP 143/70 H 05/14/20 11:11 Pulse Ox 100 05/14/20 11:11 - Orders/Labs/Meds Orders: Active Orders 24 hr Category Date Time Status Blood Glucose Check, Bedside [RC] ONETIME Care 05/14/20 11:00 Active POC Glucose [Blood Glucose Check, Bedside] [RC] ONETIME Care 05/14/20 11:38 Active CULTURE BLOOD [BC] Stat Lab 05/14/20 11:07 Results CULTURE URINE [RM] Urgent Lab 05/14/20 11:31 Received Miller [COVID-19/FLU A+B] [MOLEC] Urgent Lab 05/14/20 12:33 Ordered Labs: Laboratory Tests 05/14/20 05/14/20 05/14/20 Range/Units 11:05 11:07 11:07 WBC 9.3 (5.0-10.0) 10^3/uL RBC 3.08 L (4.2-5.4) 10^6/uL Hgb 10.3 L (12.0-16.0) g/dL Hct 31.0 L (37.0-47.0) % MCV 100.6 H (80-100) fL MCH 33.4 (27.0-34.0) pg MCHC 33.2 (33.0-35.0) g/dL Plt Count 185 (150-450) 10^3/uL Neut % (Auto) 76.8 H (42.2-75.2) % Lymph % (Auto) 15.0 L (20.5-50.1) % [place] % (Auto) 6.8 (2-8) % Eos % (Auto) 1.0 (1.0-3.0) % Baso % (Auto) 0.4 (0.0-1.0) % Sodium 147 H (136-145) mmol/L Potassium 3.9 (3.5-5.1) mmol/L Chloride 104 (98-107) mmol/L Carbon Dioxide 31 (21-32) mmol/L Anion Gap 15.9 H (7-13) mEq/L BUN 49 H (7-18) mg/dL Creatinine 2.03 H (0.55-1.02) mg/dL Est Cr Clr Drug Dosing 15.88 mL/min Estimated GFR (MDRD) 24 BUN/Creatinine Ratio 24.1 (No establ ref range) Glucose 45 L* (74-99) mg/dL POC Glucose 47 L* (83-110) mg/dl Lactic Acid (0.4-2.0) mmol/L Calcium 8.9 (8.5-10.1) mg/dL Total Bilirubin 0.6 (0.2-1.0) mg/dL AST 33 (15-37) U/L ALT 12 L (14-59) U/L Alkaline Phosphatase 29 L (46-116) U/L Total Protein 6.9 (6.4-8.2) g/dL Albumin 3.4 (3.4-5.0) g/dL Globulin 3.5 Albumin/Globulin Ratio 1.0 Urine Color (YELLOW) Urine Appearance (CLEAR) Urine pH (5.0-9.0) Ur Specific [place] (1.005-1.030) Urine Protein (NEGATIVE) Urine Glucose (UA) (NEGATIVE) Urine Ketones (NEGATIVE) Urine Occult Blood (NEGATIVE) Urine Nitrite (NEGATIVE) Urine Bilirubin (NEGATIVE) Urine Urobilinogen (0.2-1.0) mg/dL Ur Leukocyte Esterase (NEGATIVE) Urine RBC /HPF Urine WBC (0-5/HPF) /HPF Ur Epithelial Cells (NOT SEEN) /HPF Amorphous Sediment (NOT SEEN) /HPF Urine Bacteria (0-FEW/HPF) /HPF 05/14/20 05/14/20 05/14/20 Range/Units 11:07 11:31 11:34 WBC (5.0-10.0) 10^3/uL RBC (4.2-5.4) 10^6/uL Hgb (12.0-16.0) g/dL Hct (37.0-47.0) % MCV (80-100) fL MCH (27.0-34.0) pg MCHC (33.0-35.0) g/dL Plt Count (150-450) 10^3/uL Neut % (Auto) (42.2-75.2) % Lymph % (Auto) (20.5-50.1) % [place] % (Auto) (2-8) % Eos % (Auto) (1.0-3.0) % Baso % (Auto) (0.0-1.0) % Sodium (136-145) mmol/L Potassium (3.5-5.1) mmol/L Chloride (98-107) mmol/L Carbon Dioxide (21-32) mmol/L Anion Gap (7-13) mEq/L BUN (7-18) mg/dL Creatinine (0.55-1.02) mg/dL Est Cr Clr Drug Dosing mL/min Estimated GFR (MDRD) BUN/Creatinine Ratio (No establ ref range) Glucose (74-99) mg/dL POC Glucose 142 H (83-110) mg/dl Lactic Acid 1.7 (0.4-2.0) mmol/L Calcium (8.5-10.1) mg/dL Total Bilirubin (0.2-1.0) mg/dL AST (15-37) U/L ALT (14-59) U/L Alkaline Phosphatase (46-116) U/L Total Protein (6.4-8.2) g/dL Albumin (3.4-5.0) g/dL Globulin Albumin/Globulin Ratio Urine Color Yellow (YELLOW) Urine Appearance Slightly cloudy (CLEAR) Urine pH 5.5 (5.0-9.0) Ur Specific [place] 1.015 (1.005-1.030) Urine Protein >=300 H (NEGATIVE) Urine Glucose (UA) Negative (NEGATIVE) Urine Ketones Negative (NEGATIVE) Urine Occult Blood Moderate H (NEGATIVE) Urine Nitrite Negative (NEGATIVE) Urine Bilirubin Negative (NEGATIVE) Urine Urobilinogen 0.2 (0.2-1.0) mg/dL Ur Leukocyte Esterase Small H (NEGATIVE) Urine RBC 0-5 /HPF Urine WBC 5-10 H (0-5/HPF) /HPF Ur Epithelial Cells Few (NOT SEEN) /HPF Amorphous Sediment Few (NOT SEEN) /HPF Urine Bacteria Few (0-FEW/HPF) /HPF Meds: Medications Discontinued Medications Generic Name Dose Route Start Last Admin Trade Name Aubree PRN Reason Stop Dose Admin Dextrose/Water 50 ml 05/14/20 11:06 05/14/20 11:08 50% Dextrose In Water 50 Ml Syringe IVPUSH 05/14/20 11:07 50 ml ONETIME ONE Administration Dextrose/Water Confirm 05/14/20 11:06 50% Dextrose In Water 50 Ml Syringe Administered 05/14/20 11:07 Dose 50 ml .ROUTE .STK-MED ONE Departure - Departure Time of Disposition: 12:47 Disposition: Refer to Observation Condition: Fair Clinical Impression: Hypoglycemia - Discharge Information *PRESCRIPTION DRUG MONITORING PROGRAM REVIEWED*: Not Applicable *COPY OF PRESCRIPTION DRUG MONITORING REPORT IN PATIENT PERICO: Not Applicable Care Plan Goals: Discussed the patient's history, examination and treatments with Dr. Gray. Dr. Gray accepted the patient for continued evaluation and further treatment as an observation patient at [facility]. Sepsis Event Note (ED) - Evaluation Sepsis Screening Result: No Definite Risk - Focused Exam Vital Signs: Vital Signs Temp Pulse Resp BP Pulse Ox 05/14/20 11:11 35.8 C L 87 18 143/70 H 100 - My Orders Last 24 Hours: My Active Orders 05/14/20 11:00 Blood Glucose Check, Bedside [RC] ONETIME 05/14/20 11:07 CULTURE BLOOD [BC] Stat 05/14/20 11:31 CULTURE URINE [RM] Urgent 05/14/20 11:38 POC Glucose [Blood Glucose Check, Bedside] [RC] ONETIME 05/14/20 12:33 Miller [COVID-19/FLU A+B] [MOLEC] Urgent - Assessment/Plan Last 24 Hours: My Active Orders 05/14/20 11:00 Blood Glucose Check, Bedside [RC] ONETIME 05/14/20 11:07 CULTURE BLOOD [BC] Stat 05/14/20 11:31 CULTURE URINE [RM] Urgent 05/14/20 11:38 POC Glucose [Blood Glucose Check, Bedside] [RC] ONETIME 05/14/20 12:33 Miller [COVID-19/FLU A+B] [MOLEC] Urgent
[2020-05-14 13:25] LABS: CORONAVIRUS COVID-19 NAA NEGATIVE (NEGATIVE)
--- NOTE | 2020-05-14 14:28 | PCM.HP ---
H&P History of Present Illness - General Date of Service: 05/14/20 Admit Problem/Dx: Admission Diagnosis/Problem Admission Diagnosis/Problem Hypoglycemia - History of Present Illness Initial Comments - Free Text/Narative: 80F w/ pmh PD, DM2, hx HT but now w/ orthostatic hypotension, hard of hearing, CKD3, depression, left breast ca s/p surgery/XRT/chemo 3y ago, colon ca s/p partial colectomy 1y ago, sq cell carcinoma left nostril 1y ago, chronic hypoxic respiratory failure one home o2 2L p/w weakness. Hx provided by as pt forgetful, confused and hard of hearing. Over past 3y the pt has grown increasingly weak and deconditioned. She uses a cane and crabs on to wall to ambulate around the house. Doesnt have the strength to use a walker. Uses wheelchair at doctors offices but doesnt have one at home. She is essentially home bound except for doctors visits. Very poor appetite now. provides all care. Yesterday the pt had a normal day. This morning she work up weaker than usual. She could not get out of bed at her usual 8 am. At 830 am she needed to go to the bathroom but could not even sit up in bed. sat her at the edge of the bed and left the room. He was gone appx 2 min. He found her on her bottom, next to the bed, as if she slid off w/ her legs giving out. She was conscious and oriented but extremely weak. checked her saturation and it was 96%. He called EMS because of the weakness. Sometime prior to EMS arrival he decided to still give her the morning dose of lispro insulin but he did not check the FSG. She did not eat that morning. On EMS arrival the pt c/o 'pain all over'. In ED FSG noted to be 45. Pt is profoundly weak, anxious, guards against all movement and exhibits almost myoclonic-like jerking to light touch. This is most pronounced to b/l lower extremity manipulation. She localizes severe pain to b/l thighs. There is no midline spine TTP. - Related Data Allergies/Adverse Reactions: Allergies Allergy/AdvReac Type Severity Reaction Status Date / Time ampicillin Allergy Cannot Verified 05/14/20 13:39 Remember metronidazole Allergy Cannot Verified 05/14/20 13:39 Remember Penicillins Allergy Cannot Verified 05/14/20 13:39 Remember sulfamethoxazole Allergy Cannot Verified 05/14/20 13:39 [From Bactrim] Remember Tetracyclines Allergy Cannot Verified 05/14/20 13:39 Remember trimethoprim [From Bactrim] Allergy Cannot Verified 05/14/20 13:39 Remember Home Medications: Home Meds Insulin Lispro [Humalog] 5 units SQ TIDMEALS 04/24/15 [History] atorvaSTATin [Lipitor] 40 mg PO DAILY 04/24/15 [History] metFORMIN HCl [Metformin HCl] 1,000 mg PO BID 04/24/15 [History] Aspirin [Halfprin] 81 mg PO BEDTIME 07/03/15 [History] Budesonide [Pulmicort] 1 vial INH BID PRN 07/03/15 [History] Insulin Glarg,Human.Rec.Analog [Lantus] 14 units INJECT BEDTIME 07/03/15 [History] Latanoprost [Xalatan 0.005% Ophth Soln] 1 applic EYEBOTH BEDTIME 07/03/15 [History] Multivitamin [Multivitamins] 1 tab PO DAILY 07/03/15 [History] Carbidopa/Levodopa [Carbidopa-Levodopa 25-100 Tab] 2 tab PO TID 02/11/19 [History] Anastrozole [Arimidex] 1 mg PO DAILY 02/12/19 [History] Fludrocortisone [Florinef] 0.1 mg PO DAILY 02/12/19 [History] Midodrine 5 mg PO TID 05/14/20 [History] Oxybutynin Chloride [Oxybutynin Chloride ER] 10 mg PO DAILY 05/14/20 [History] guaiFENesin [Mucinex] 600 mg PO DAILY 05/14/20 [History] Past Medical History HEENT History: Reports: Cataract, Impaired Vision, Sinusitis Cardiovascular History: Reports: High Cholesterol, Hypertension, Other (See Below) Other Cardiovascular History: EDEMA Respiratory History: Reports: COPD, Other (See Below) Other Respiratory History: BRONCHIECTASIS; URI, ?FIBROSIS RECENT DIAGNOSIS Gastrointestinal History: Reports: Chronic Constipation Genitourinary History: Reports: Chronic Renal Insuffiency, Urinary Incontinence, Other (See Below) Other Genitourinary History: CKD STAGE III; CYST OF LEFT KIDNEY [employer] EDUCATION History: Reports: Musculoskeletal History: Reports: Arthritis, Osteoporosis, Other (See Below) Other Musculoskeletal History: BONE METABOLISM DISORDER Neurological History: Reports: Parkinson's Psychiatric History: Reports: Anxiety, Depression Endocrine/Metabolic History: Reports: Diabetes, Type II, Obesity/BMI 30+, Osteoporosis Hematologic History: Reports: Anemia, Other (See Below) Other Hematologic History: MICROALBUMINURIA Immunologic History: Reports: None Oncologic (Cancer) History: Reports: Breast, Colon Dermatologic History: Reports: None - Infectious Disease History Other Infectious Disease History: DOESN'T RECALL - Past Surgical History Head Surgeries/Procedures: Reports: None HEENT Surgical History: Reports: Cataract Surgery Cardiovascular Surgical History: Reports: None Respiratory Surgical History: Reports: None GI Surgical History: Reports: Cholecystectomy, Colonoscopy, Other (See Below) Other GI Surgeries/Procedures: hemicolectomy Female Surgical History: Reports: None Endocrine Surgical History: Reports: None Neurological Surgical History: Reports: None Musculoskeletal Surgical History: Reports: Knee Replacement, Other (See Below) Other Musculoskeletal Surgeries/Procedures:: BILAT KNEE REPLACEMENT Oncologic Surgical History: Reports: Biopsy of Breast, Lumpectomy Dermatological Surgical History: Reports: None Social & Family History - Family History Family Medical History: No Pertinent Family History - Tobacco Use Tobacco Use Status *Q: Never Tobacco User - Caffeine Use Caffeine Use: Reports: Coffee Other Caffeine Use: SOME - Recreational Drug Use Recreational Drug Use: No H&P Review of Systems - Review of Systems: Review Of Systems: See Below General: Reports: Malaise, Weakness. Denies: Fever, Chills, Diaphoresis HEENT: Reports: Other (hard of hearing). Denies: Headaches Pulmonary: Denies: Shortness of Breath, Wheezing, Cough, Sputum Cardiovascular: Denies: Chest Pain, Orthopnea, Edema Gastrointestinal: Denies: Abdominal Pain, Constipation, Diarrhea Genitourinary: Denies: Dysuria Musculoskeletal: Reports: Other (pain all over). Denies: Neck Pain Skin: Denies: Jaundice Psychiatric: Reports: Confusion, Mood Lability, Anxiety Neurological: Reports: Confusion, Dizziness, Other (myoclonic like jerking upper and lower extremities) Hematologic/Lymphatic: Denies: Easy Bleeding Immunologic: Reports: Other (allergies as listed) Exam - Exam Exam: See Below - Vital Signs Vital Signs: Last Vital Signs Temp 96.5 F L 05/14/20 11:11 Pulse 87 05/14/20 11:11 Resp 18 05/14/20 11:11 BP 143/70 H 05/14/20 11:11 Pulse Ox 100 05/14/20 11:11 Weight: 175 lb 14.4 oz - Exam Quality Assessment: Supplemental Oxygen (2L) General: Alert, Other (disoriented, anxious) HEENT: Conjunctiva Clear Neck: Supple Lungs: Rales (bilateral) Cardiovascular: Regular Rate, Regular Rhythm GI/Abdominal Exam: Normal Bowel Sounds, Soft, Non-Tender, No Distention Extremities: No Pedal Edema Skin: Warm, Dry, Intact Neurological: Hyperreflexia (vs myoclonus vs anxiety+parkisonian ridigity), Other (difficult to assess LE objective strength since pt not cooperating) Psychiatric: Labile Mood, Anxious - Patient Data Lab Results Last 24 hrs: Laboratory Results - last 24 hr 05/14/20 05/14/20 05/14/20 Range/Units 11:05 11:07 11:07 WBC 9.3 (5.0-10.0) 10^3/uL RBC 3.08 L (4.2-5.4) 10^6/uL Hgb 10.3 L (12.0-16.0) g/dL Hct 31.0 L (37.0-47.0) % MCV 100.6 H (80-100) fL MCH 33.4 (27.0-34.0) pg MCHC 33.2 (33.0-35.0) g/dL Plt Count 185 (150-450) 10^3/uL Neut % (Auto) 76.8 H (42.2-75.2) % Lymph % (Auto) 15.0 L (20.5-50.1) % Wilcox % (Auto) 6.8 (2-8) % Eos % (Auto) 1.0 (1.0-3.0) % Baso % (Auto) 0.4 (0.0-1.0) % Sodium 147 H (136-145) mmol/L Potassium 3.9 (3.5-5.1) mmol/L Chloride 104 (98-107) mmol/L Carbon Dioxide 31 (21-32) mmol/L Anion Gap 15.9 H (7-13) mEq/L BUN 49 H (7-18) mg/dL Creatinine 2.03 H (0.55-1.02) mg/dL Est Cr Clr Drug Dosing 15.88 mL/min Estimated GFR (MDRD) 24 BUN/Creatinine Ratio 24.1 (No establ ref range) Glucose 45 L* (74-99) mg/dL POC Glucose 47 L* (83-110) mg/dl Lactic Acid (0.4-2.0) mmol/L Calcium 8.9 (8.5-10.1) mg/dL Total Bilirubin 0.6 (0.2-1.0) mg/dL AST 33 (15-37) U/L ALT 12 L (14-59) U/L Alkaline Phosphatase 29 L (46-116) U/L Total Protein 6.9 (6.4-8.2) g/dL Albumin 3.4 (3.4-5.0) g/dL Globulin 3.5 Albumin/Globulin Ratio 1.0 Urine Color (YELLOW) Urine Appearance (CLEAR) Urine pH (5.0-9.0) Ur Specific Erhard (1.005-1.030) Urine Protein (NEGATIVE) Urine Glucose (UA) (NEGATIVE) Urine Ketones (NEGATIVE) Urine Occult Blood (NEGATIVE) Urine Nitrite (NEGATIVE) Urine Bilirubin (NEGATIVE) Urine Urobilinogen (0.2-1.0) mg/dL Ur Leukocyte Esterase (NEGATIVE) Urine RBC /HPF Urine WBC (0-5/HPF) /HPF Ur Epithelial Cells (NOT SEEN) /HPF Amorphous Sediment (NOT SEEN) /HPF Urine Bacteria (0-FEW/HPF) /HPF Influenza Type A RNA (NEGATIVE) Influenza Type B RNA (NEGATIVE) SARS-CoV-2 RNA (MEHUL) (NEGATIVE) 05/14/20 05/14/20 05/14/20 Range/Units 11:07 11:31 11:34 WBC (5.0-10.0) 10^3/uL RBC (4.2-5.4) 10^6/uL Hgb (12.0-16.0) g/dL Hct (37.0-47.0) % MCV (80-100) fL MCH (27.0-34.0) pg MCHC (33.0-35.0) g/dL Plt Count (150-450) 10^3/uL Neut % (Auto) (42.2-75.2) % Lymph % (Auto) (20.5-50.1) % Wilcox % (Auto) (2-8) % Eos % (Auto) (1.0-3.0) % Baso % (Auto) (0.0-1.0) % Sodium (136-145) mmol/L Potassium (3.5-5.1) mmol/L Chloride (98-107) mmol/L Carbon Dioxide (21-32) mmol/L Anion Gap (7-13) mEq/L BUN (7-18) mg/dL Creatinine (0.55-1.02) mg/dL Est Cr Clr Drug Dosing mL/min Estimated GFR (MDRD) BUN/Creatinine Ratio (No establ ref range) Glucose (74-99) mg/dL POC Glucose 142 H (83-110) mg/dl Lactic Acid 1.7 (0.4-2.0) mmol/L Calcium (8.5-10.1) mg/dL Total Bilirubin (0.2-1.0) mg/dL AST (15-37) U/L ALT (14-59) U/L Alkaline Phosphatase (46-116) U/L Total Protein (6.4-8.2) g/dL Albumin (3.4-5.0) g/dL Globulin Albumin/Globulin Ratio Urine Color Yellow (YELLOW) Urine Appearance Slightly cloudy (CLEAR) Urine pH 5.5 (5.0-9.0) Ur Specific Erhard 1.015 (1.005-1.030) Urine Protein >=300 H (NEGATIVE) Urine Glucose (UA) Negative (NEGATIVE) Urine Ketones Negative (NEGATIVE) Urine Occult Blood Moderate H (NEGATIVE) Urine Nitrite Negative (NEGATIVE) Urine Bilirubin Negative (NEGATIVE) Urine Urobilinogen 0.2 (0.2-1.0) mg/dL Ur Leukocyte Esterase Small H (NEGATIVE) Urine RBC 0-5 /HPF Urine WBC 5-10 H (0-5/HPF) /HPF Ur Epithelial Cells Few (NOT SEEN) /HPF Amorphous Sediment Few (NOT SEEN) /HPF Urine Bacteria Few (0-FEW/HPF) /HPF Influenza Type A RNA (NEGATIVE) Influenza Type B RNA (NEGATIVE) SARS-CoV-2 RNA (MEHUL) (NEGATIVE) 05/14/20 05/14/20 Range/Units 12:36 13:23 WBC (5.0-10.0) 10^3/uL RBC (4.2-5.4) 10^6/uL Hgb (12.0-16.0) g/dL Hct (37.0-47.0) % MCV (80-100) fL MCH (27.0-34.0) pg MCHC (33.0-35.0) g/dL Plt Count (150-450) 10^3/uL Neut % (Auto) (42.2-75.2) % Lymph % (Auto) (20.5-50.1) % Wilcox % (Auto) (2-8) % Eos % (Auto) (1.0-3.0) % Baso % (Auto) (0.0-1.0) % Sodium (136-145) mmol/L Potassium (3.5-5.1) mmol/L Chloride (98-107) mmol/L Carbon Dioxide (21-32) mmol/L Anion Gap (7-13) mEq/L BUN (7-18) mg/dL Creatinine (0.55-1.02) mg/dL Est Cr Clr Drug Dosing mL/min Estimated GFR (MDRD) BUN/Creatinine Ratio (No establ ref range) Glucose (74-99) mg/dL POC Glucose 101 (83-110) mg/dl Lactic Acid (0.4-2.0) mmol/L Calcium (8.5-10.1) mg/dL Total Bilirubin (0.2-1.0) mg/dL AST (15-37) U/L ALT (14-59) U/L Alkaline Phosphatase (46-116) U/L Total Protein (6.4-8.2) g/dL Albumin (3.4-5.0) g/dL Globulin Albumin/Globulin Ratio Urine Color (YELLOW) Urine Appearance (CLEAR) Urine pH (5.0-9.0) Ur Specific Erhard (1.005-1.030) Urine Protein (NEGATIVE) Urine Glucose (UA) (NEGATIVE) Urine Ketones (NEGATIVE) Urine Occult Blood (NEGATIVE) Urine Nitrite (NEGATIVE) Urine Bilirubin (NEGATIVE) Urine Urobilinogen (0.2-1.0) mg/dL Ur Leukocyte Esterase (NEGATIVE) Urine RBC /HPF Urine WBC (0-5/HPF) /HPF Ur Epithelial Cells (NOT SEEN) /HPF Amorphous Sediment (NOT SEEN) /HPF Urine Bacteria (0-FEW/HPF) /HPF Influenza Type A RNA Negative (NEGATIVE) Influenza Type B RNA Negative (NEGATIVE) SARS-CoV-2 RNA (MEHUL) Negative (NEGATIVE) Result Diagrams: 05/14/20 11:07 05/14/20 11:07 Jayden Results Last 24 hrs: Microbiology 05/14/20 11:07 Anaerobic Blood Culture - Final Blood - Venous - Iv Start Problem List Initiated/Reviewed/Updated: No Orders Last 24hrs: Active Orders 24 hr Category Date Time Status Admission Diagnosis [ADT] Urgent ADT 05/14/20 12:43 Ordered Admission Status [Patient Status] [ADT] Routine ADT 05/14/20 12:43 Active Patient Status [ADT] Routine ADT 05/14/20 13:48 Active Blood Glucose Check, Bedside [RC] WITHMEALSANDBED Care 05/14/20 13:48 Active Oxygen Therapy [RC] PRN Care 05/14/20 13:48 Active RT Aerosol Therapy [RC] ASDIRECTED Care 05/14/20 13:55 Active Up With Assistance [RC] ASDIRECTED Care 05/14/20 13:48 Active VTE/DVT Education [RC] PER UNIT ROUTINE Care 05/14/20 13:48 Active Vital Signs [RC] Q4H Care 05/14/20 13:48 Active PT Evaluation and Treatment [CONS] Routine Cons 05/14/20 13:48 Active Regular Diet [DIET] Diet 05/14/20 Dinner Active BASIC METABOLIC PANEL,BMP [CHEM] AM Lab 05/15/20 05:11 Ordered CULTURE BLOOD [BC] Stat Lab 05/14/20 11:07 Results CULTURE URINE [RM] Urgent Lab 05/14/20 11:31 Received GLYCOSYLATED HEMOGLOBIN,HGBA1C [CHEM] AM Lab 05/15/20 05:11 Ordered TSH ULTRASENSITIVE [CHEM] AM Lab 05/15/20 05:11 Ordered Acetaminophen [TylenoL] Med 05/14/20 13:48 Active 650 mg PO Q4H PRN Anastrozole [Arimidex] Med 05/15/20 09:00 Pending 1 mg PO DAILY Aspirin [Halfprin] Med 05/14/20 21:00 Pending 81 mg PO BEDTIME Budesonide [Pulmicort] Med 05/14/20 13:53 Pending DOSE mg INH BID PRN Carbidopa/Levodopa [Sinemet 25-100 mg] Med 05/14/20 18:00 Pending 2 tab PO 0800,1200,1800 Fludrocortisone [Florinef] Med 05/15/20 09:00 Pending 0.1 mg PO DAILY Heparin Sodium Med 05/14/20 14:00 Active 5,000 units SUBCUT Q8HR Latanoprost [Xalatan 0.005% Ophth Soln] Med 05/14/20 21:00 Pending DOSE ml EYEBOTH BEDTIME Midodrine [Midodrine] Med 05/14/20 14:00 Pending 5 mg PO TID Oxybutynin Chloride [Oxybutynin Chloride ER] Med 05/15/20 09:00 Pending 10 mg PO DAILY atorvaSTATin [Lipitor] Med 05/15/20 09:00 Pending 40 mg PO DAILY Resuscitation Status Routine Resus Stat 05/14/20 13:48 Ordered Medication Orders Acetaminophen (Acetaminophen 325 Mg Tab) 650 mg PO Q4H PRN PRN Reason: Pain (Mild 1-3)/fever Aspirin (Aspirin 81 Mg Tab.Ec) 81 mg PO BEDTIME JAVON Budesonide (Budesonide 0.5 Mg/2 Ml Neb Susp) mg INH BID PRN PRN Reason: .SHORTNESS OF BREATH Carbidopa/Levodopa (Carbidopa/Levodopa 25-100 Mg Tab) 2 tab PO 0800,1200,1800 JAVON Fludrocortisone Acetate (Fludrocortisone 0.1 Mg Tab) 0.1 mg PO DAILY JAVON Heparin Sodium (Porcine) (Heparin Sodium 5,000 Units/Ml Vial) 5,000 units SUBCUT Q8HR JAVON Latanoprost (Latanoprost 0.005% Ophth Soln 2.5 Ml Bottle) ml EYEBOTH BEDTIME JAVON Non-Formulary Medication (Atorvastatin [Lipitor]) 40 mg PO DAILY JAVON Non-Formulary Medication (Midodrine [Midodrine]) 5 mg PO TID JAVON Non-Formulary Medication (Oxybutynin Chloride [Oxybutynin Chloride Er]) 10 mg PO DAILY [facility] Non-Formulary Medication (Anastrozole [Arimidex]) 1 mg PO DAILY JAVON Assessment/Plan Comment:: #weakness and LE pain - very difficult exam due to pt lack of cooperation, anxiety and underlying Parkinson's disease - she seems to localize pain to b/l thighs but at times shows an almost generalized hyper-reflexia or myoclonic jerking - will check MRI L-spine to r/o pathology after falling on her buttock (compression fx/disc herniation), trial gabapentin x1 for possible lateral femoral cutaneous nerve entrapment causing thigh pain (usually unilateral not bilateral), would also consider medication side effects since sinemet was increased 1.5 >>> 2 tabs TID this month, check CPK r/o statin induced rhabdo #hypoglycemia - it appears pt is controlled too tightly - she eats minimally now - has CKD3 - per am FSG 80-100 - he gives TID lispro and lantus 15 w/o checking FSG - will check A1c - stop all insulin - d/c metformin since Cr is too high - suspect will only need a minimal dose of lantus on discharge or even maybe nothing #PD / orthostatic hypotension / CKD3 - c/w home meds PPX - [facility] Full code d/w , daughter and granddaughter Taylor (plate sensitizer) via telephone conference
[2020-05-14] MEDS ORDERED: Gabapentin 100 MG Cap PO ONE (15:49)
[2020-05-14] MEDS ORDERED: Magnesium Sulfate/Water 2 GM/50 ML BAG IV ONE (16:04)
[2020-05-14] MEDS: Acetaminophen 325 MG Tab PO PRN ×2 (16:55→20:50)
[2020-05-14] MEDS: Heparin Sodium 5,000 Units/ML Vial SUBCUT SCH ×2 (16:57→20:50)
[2020-05-14] MEDS: Carbidopa/Levodopa 25-100 MG Tab PO SCH (18:26)
[2020-05-14] MEDS: Midodrine 2.5 MG Tab PO SCH (20:49)
[2020-05-15] MEDS: Heparin Sodium 5,000 Units/ML Vial SUBCUT SCH ×2 (05:52→14:53)
[2020-05-15] MEDS: Acetaminophen 325 MG Tab PO PRN (07:53)
[2020-05-15 08:07] LABS: HEMOGLOBIN A1C 4.9 % (<5.7)
[2020-05-15 08:24] LABS: ANION GAP 14.2 mEq/L (7-13)
[2020-05-15] MEDS ORDERED: Fludrocortisone 0.1 MG Tab PO ONE (09:00)
[2020-05-15] MEDS ORDERED: ATORVASTATIN 40 MG PO SCH (09:00)
[2020-05-15] MEDS ORDERED: ANASTROZOLE 1 MG PO SCH (09:00)
--- NOTE | 2020-05-15 09:09 | MR ---
PROCEDURE INFORMATION: Exam: MR Lumbar Spine Without Contrast. Exam date and time: 05/15/2020 9:06 AM Age: 80 years old Clinical indication: Low back pain; Additional info: B/l le pain and weakness TECHNIQUE: Imaging protocol: Multiplanar magnetic resonance images of the lumbar spine without contrast. COMPARISON: CT Chest Abdomen Pelvis wo Cont 01/21/2020 10:25:40 AM FINDINGS: Vertebrae: There is mild dextrocurvature of lumbar spine. There is slight retrolisthesis of L2 on L3 and L3 on L4 and anterolisthesis of L5 on S1. Vertebral body heights are maintained. Vertebral body heights normal. There is diffuse disc desiccation. There is small amount of increased STIR signal centrally in the L2-L3 and L3-L4 disc spaces. There are endplate marrow changes which are mid signal. This shows fatty signal and sclerosis at L2-L3 with findings consistent with mixed type 1 and type 2 marrow changes and predominantly type 1 marrow changes at L3-L4. There is vacuum disc at L3-L4. Although increased signal on STIR images in disc space can be seen with infection, other endplate changes and vacuum disc and findings are most consistent with degenerative change. Spinal cord: Conus terminates at L1 and appears normal in signal intensity without intrinsic or extrinsic lesion. L1-L2: There is minimal disc bulge. There is mild thickening of ligamentum flavum and facet degeneration. There is no significant spinal stenosis. There is no significant neural foraminal narrowing. L2-L3: There is marginal osteophyte and moderate disc bulge. There is moderate thickening of ligamentum flavum and mild proliferative facet degeneration. There is mild spinal stenosis and moderate bilateral superior subarticular recesses narrowing. There is moderate bilateral neural foraminal narrowing. L3-L4: There is marginal osteophyte and moderate disc bulge. There is moderate thickening of ligamentum flavum and mild proliferative facet degeneration. There is mild spinal stenosis and moderate bilateral superior subarticular recesses narrowing. There is moderate left greater than right neural foraminal narrowing. L4-L5: There is mild marginal moderate disc bulge. There is moderate thickening of ligamentum flavum and mild proliferative facet degeneration. There is no significant spinal stenosis. There is minimal bilateral neural foraminal narrowing. L5-S1: There is mild disc bulge. There is moderate thickening of ligamentum flavum and right greater than left facet degeneration with facet joint fluid. There is no significant spinal stenosis. There is mild right and minimal left neural foraminal narrowing. Soft tissues: Unremarkable. Kidneys and ureters: Again seen on multiple left renal cysts. IMPRESSION: Degenerative changes as described greatest at L2-L3 and L3-L4 with mild spinal stenosis and moderate subarticular recesses and neural foraminal narrowing.
--- NOTE | 2020-05-15 09:17 | CR ---
PROCEDURE INFORMATION: Exam: XR Bilateral Hips Exam date and time: 05/15/2020 8:25 AM Age: 80 years old Clinical indication: Pelvic pain; Additional info: Pain S/P fall TECHNIQUE: Imaging protocol: XR bilateral hips. Views: 2 views of hips with pelvis when performed. COMPARISON: CT Chest Abdomen Pelvis wo Cont 01/21/2020 10:25 AM FINDINGS: Bones/joints: No acute fracture. No dislocation. No significant degenerative changes at hips for patient's age. Mild degenerative changes at symphysis pubis. Degenerative changes noted in lower spine. Soft tissues: Arterial vascular calcifications. IMPRESSION: No acute finding. No evidence of acute fracture.
[2020-05-15] MEDS: Midodrine 2.5 MG Tab PO SCH (09:19)
[2020-05-15] MEDS: Carbidopa/Levodopa 25-100 MG Tab PO SCH (09:20)
[2020-05-15] MEDS ORDERED: LEVODOPA PO SCH (09:30)
[2020-05-15] MEDS ORDERED: CARBIDOPA PO SCH (09:30)
[2020-05-15] MEDS: FLUDROCORTISONE 0.1 MG PO SCH (09:40)
[2020-05-15] MEDS ORDERED: Morphine 2 MG/ML SYRINGE IVPUSH ONE (09:48)
[2020-05-15] MEDS ORDERED: Budesonide 0.5 MG/2 ML Neb Susp INH SCH (10:15)
[2020-05-15] MEDS ORDERED: Morphine 2 MG/ML SYRINGE SUBCUT PRN (10:35)
[2020-05-15] MEDS ORDERED: Glucagon,Human Recombinant 1 MG Vial IM PRN (12:05)
[2020-05-15] MEDS ORDERED: 50% Dextrose in Water 50 ML Syringe IV PRN (12:05)
[2020-05-15] MEDS: OXYBUTYNIN CHLORIDE 10 MG PO SCH (12:09)
[2020-05-15] MEDS: Tiotropium Inhaler 18 MCG Inhalation Powder Cap Kit of 5 INH SCH (12:11)
[2020-05-15] MEDS: atorvaSTATin 10 MG Tab PO SCH (12:11)
[2020-05-15] MEDS: MIDODRINE 5 MG PO SCH ×2 (12:12→17:49)
[2020-05-15] MEDS: ANASTROZOLE 1 MG PO SCH (12:12)
[2020-05-15] MEDS: CARBIDOPA PO SCH ×2 (12:32→17:49)
[2020-05-15] MEDS: LEVODOPA PO SCH ×2 (12:32→17:49)
[2020-05-15] MEDS: Insulin Lispro 100 Units/ML 3 ML Vial SUBCUT SCH ×3 (12:54→21:32)
--- NOTE | 2020-05-15 14:05 | CT ---
EXAMINATION: Hip wo Cont Bi SEX: Female AGE: 80 years CLINICAL HISTORY: 80-year-old female injured in fall. Patient not able to flex right hip or rotate lower extremity. Scan technique: Volume acquisition of data emergency unenhanced CT scan of the pelvis and both hips obtained with the patient lying supine on the Siemens multi slice scanner [place], [place]. All data archived in the PACS system for storage, reformatting axial/sagittal/coronal planes and study (bone/soft tissue windows). Interpretation: 1. Homogeneous bone mineral density for age and gender. Patient rotated on scanner. 2. No fracture or dislocation of the lower two lumbar vertebrae or sacrum. 3. Bony pelvis symmetrically intact i.e. no sign of fracture. Symmetric normal spacing of the SI and hip joints bilaterally. 4. No fracture or dislocation either hip. 5. No foreign bodies. Arteriovascular calcifications aorta iliac and femoral arteries. Senescent uterus. CONCLUSION: No sign of acute pelvic or either hip fracture/dislocation.
--- NOTE | 2020-05-15 14:37 | PCM.PN ---
- General Info Date of Service: 05/15/20 Admission Dx/Problem (Free Text): confused not answering questions. Her reports poor appitite. Pt reports pain but not able to specify site. not able to move legs espicaaly RT side - Review of Systems Pulmonary: Denies: Shortness of Breath Cardiovascular: Denies: Chest Pain Musculoskeletal: Reports: Leg Pain Skin: Denies: Cyanosis, Bruising Neurological: Reports: Confusion. Denies: Tremors Psychiatric: Reports: Confusion - Patient Data Vitals - Most Recent: Last Vital Signs Temp 98.4 F 05/15/20 12:00 Pulse 79 05/15/20 12:00 Resp 20 05/15/20 12:00 BP 119/52 L 05/15/20 12:00 Pulse Ox 94 L 05/15/20 12:00 Weight - Most Recent: 171 lb 9.6 oz I&O - Last 24 Hours: Intake & Output 05/14/20 05/15/20 05/15/20 22:59 06:59 14:59 Intake Total 760 50 340 Balance 760 50 340 Lab Results Last 24 Hours: Laboratory Results - last 24 hr 05/14/20 05/14/20 05/14/20 Range/Units 11:07 11:07 15:59 Sodium (136-145) mmol/L Potassium (3.5-5.1) mmol/L Chloride (98-107) mmol/L Carbon Dioxide (21-32) mmol/L Anion Gap (7-13) mEq/L BUN (7-18) mg/dL Creatinine (0.55-1.02) mg/dL Est Cr Clr Drug Dosing mL/min Estimated GFR (MDRD) Glucose (74-99) mg/dL POC Glucose 82 L (83-110) mg/dl Hemoglobin A1c (<5.7) % Calcium (8.5-10.1) mg/dL Magnesium 1.5 L (1.8-2.4) mg/dL Creatine Kinase 102 (16-191) U/L TSH, Ultra Sensitive (0.36-3.74) uIU/mL 05/14/20 05/14/20 05/15/20 Range/Units 17:05 20:46 07:51 Sodium 144 (136-145) mmol/L Potassium 4.2 (3.5-5.1) mmol/L Chloride 103 (98-107) mmol/L Carbon Dioxide 31 (21-32) mmol/L Anion Gap 14.2 H (7-13) mEq/L BUN 57 H (7-18) mg/dL Creatinine 2.57 H (0.55-1.02) mg/dL Est Cr Clr Drug Dosing 12.54 mL/min Estimated GFR (MDRD) 18 Glucose 107 H (74-99) mg/dL POC Glucose 124 H 159 H (83-110) mg/dl Hemoglobin A1c (<5.7) % Calcium 8.6 (8.5-10.1) mg/dL Magnesium (1.8-2.4) mg/dL Creatine Kinase (16-191) U/L TSH, Ultra Sensitive 1.70 (0.36-3.74) uIU/mL 05/15/20 05/15/20 Range/Units 07:51 11:50 Sodium (136-145) mmol/L Potassium (3.5-5.1) mmol/L Chloride (98-107) mmol/L Carbon Dioxide (21-32) mmol/L Anion Gap (7-13) mEq/L BUN (7-18) mg/dL Creatinine (0.55-1.02) mg/dL Est Cr Clr Drug Dosing mL/min Estimated GFR (MDRD) Glucose (74-99) mg/dL POC Glucose 209 H (83-110) mg/dl Hemoglobin A1c 4.9 (<5.7) % Calcium (8.5-10.1) mg/dL Magnesium (1.8-2.4) mg/dL Creatine Kinase (16-191) U/L TSH, Ultra Sensitive (0.36-3.74) uIU/mL Jayden Results Last 24 Hours: Microbiology 05/14/20 11:07 Aerobic Blood Culture - Preliminary Blood - Venous - Iv Start NO GROWTH AFTER 1 DAY Anaerobic Blood Culture - Final 05/14/20 11:31 Urine Culture - Preliminary Urine, Quick Cath (In-Out) Med Orders - Current: Current Medications Acetaminophen (Acetaminophen 325 Mg Tab) 650 mg PO Q4H PRN PRN Reason: Pain (Mild 1-3)/fever Last Admin: 05/15/20 07:53 Dose: 650 mg Documented by: Aspirin (Aspirin 81 Mg Tab.Ec) 81 mg PO BEDTIME [facility] Atorvastatin Calcium (Atorvastatin 10 Mg Tab) 10 mg PO DAILY [facility] Last Admin: 05/15/20 12:11 Dose: 10 mg Documented by: Budesonide (Budesonide 0.5 Mg/2 Ml Neb Susp Pt Own Med ) 0.5 mg INH BIDRT [facility] Carbidopa/Levodopa (Carbidopa/Levodopa 25-100 Mg Tab Pt Own Med) 2 tab PO 0800,1200,1800 [facility] Last Admin: 05/15/20 12:32 Dose: 2 tab Documented by: Dextrose/Water (50% Dextrose In Water 50 Ml Syringe) 50 ml IV Q15M PRN PRN Reason: Hypoglycemia Fludrocortisone Acetate (Fludrocortisone 0.1 Mg Tab Pt Own Med) 0.1 mg PO DAILY [facility] Last Admin: 05/15/20 09:40 Dose: Not Given Documented by: Glucagon (Glucagon,Human Recombinant 1 Mg Vial) 1 mg IM Q15M PRN PRN Reason: Hypoglycemia Heparin Sodium (Porcine) (Heparin Sodium 5,000 Units/Ml Vial) 5,000 units SUBCUT Q8HR [facility] Last Admin: 05/15/20 05:52 Dose: Not Given Documented by: Insulin Human Lispro (Insulin Lispro 100 Units/Ml 3 Ml Vial) 0 unit SUBCUT WITHMEALSANDBED [facility]; Protocol Last Admin: 05/15/20 12:54 Dose: 2 units Documented by: Latanoprost (Latanoprost 0.005% Ophth Soln 2.5 Ml Bottle) 0 ml EYEBOTH BEDTIME [facility] Morphine Sulfate (Morphine 2 Mg/Ml Syringe) 2 mg SUBCUT Q6HR PRN PRN Reason: Pain Midodrine 5 Mg Tablet Pt Own Med* * 5 mg PO TIDMEALS [facility] Last Admin: 05/15/20 12:12 Dose: 5 mg Documented by: Oxybutynin Chloride Er 10 Mg Tab.Er Pt Own Med 10 mg PO DAILY [facility] Last Admin: 05/15/20 12:09 Dose: 10 mg Documented by: Anastrozole [ Arimidex] 1 Mg Tablet Pt Own Med* * 1 mg PO DAILY@1200 [facility] Last Admin: 05/15/20 12:12 Dose: 1 mg Documented by: Tiotropium [place] (Tiotropium Inhaler 18 Mcg Inhalation Powder Cap Kit Of 5) 18 mcg INH DAILY [facility] Last Admin: 05/15/20 12:11 Dose: 18 mcg Documented by: Discontinued Medications Budesonide (Budesonide 0.5 Mg/2 Ml Neb Susp) 0.5 mg INH BIDRT [facility] Carbidopa/Levodopa (Carbidopa/Levodopa 25-100 Mg Tab) 2 tab PO TID [facility] Stop: 05/15/20 09:30 Last Admin: 05/15/20 09:20 Dose: 2 tab Documented by: Dextrose/Water (50% Dextrose In Water 50 Ml Syringe) 50 ml IVPUSH ONETIME ONE Stop: 05/14/20 11:07 Last Admin: 05/14/20 11:08 Dose: 50 ml Documented by: Dextrose/Water (50% Dextrose In Water 50 Ml Syringe) Confirm Administered Dose 50 ml .ROUTE .STK-MED ONE Stop: 05/14/20 11:07 Last Admin: 05/14/20 19:26 Dose: Not Given Documented by: Fludrocortisone Acetate (Fludrocortisone 0.1 Mg Tab) 0.1 mg PO ONETIME ONE Stop: 05/15/20 09:01 Last Admin: 05/15/20 09:20 Dose: 0.1 mg Documented by: Gabapentin (Gabapentin 100 Mg Cap) 100 mg PO ONETIME ONE Stop: 05/14/20 15:50 Last Admin: 05/14/20 16:56 Dose: 100 mg Documented by: Magnesium Sulfate (Magnesium Sulfate In Water 2 Gm/50 Ml) 2 gm in 50 mls @ 25 mls/hr IV ONETIME ONE Stop: 05/14/20 18:03 Last Infusion: 05/14/20 20:05 Dose: Infused Documented by: Midodrine (Midodrine 2.5 Mg Tab) 5 mg PO TID [facility] Stop: 05/15/20 09:01 Last Admin: 05/15/20 09:19 Dose: 5 mg Documented by: Morphine Sulfate (Morphine 2 Mg/Ml Syringe) 2 mg IVPUSH ONETIME ONE Stop: 05/15/20 09:49 Last Admin: 05/15/20 10:02 Dose: 2 mg Documented by: Atorvastatin [ Lipitor] 40 Mg Tablet Pt Own Med* * 40 mg PO DAILY [facility] - Exam Quality Assessment: No: Supplemental Oxygen General: Alert. No: Oriented, Cooperative HEENT: EOMI Lungs: Clear to Auscultation Cardiovascular: Regular Rate, Regular Rhythm GI/Abdominal Exam: Soft, Non-Tender Extremities: Normal Inspection, Other (unable to bend her hips maily RT side. ? tenderness to RT lateral thigh. ? RT foot mildy roatated) - Patient Data Lab Results Last 24 hrs: Laboratory Results - last 24 hr 05/14/20 05/14/20 05/14/20 Range/Units 11:07 11:07 15:59 Sodium (136-145) mmol/L Potassium (3.5-5.1) mmol/L Chloride (98-107) mmol/L Carbon Dioxide (21-32) mmol/L Anion Gap (7-13) mEq/L BUN (7-18) mg/dL Creatinine (0.55-1.02) mg/dL Est Cr Clr Drug Dosing mL/min Estimated GFR (MDRD) Glucose (74-99) mg/dL POC Glucose 82 L (83-110) mg/dl Hemoglobin A1c (<5.7) % Calcium (8.5-10.1) mg/dL Magnesium 1.5 L (1.8-2.4) mg/dL Creatine Kinase 102 (16-191) U/L TSH, Ultra Sensitive (0.36-3.74) uIU/mL 05/14/20 05/14/20 05/15/20 Range/Units 17:05 20:46 07:51 Sodium 144 (136-145) mmol/L Potassium 4.2 (3.5-5.1) mmol/L Chloride 103 (98-107) mmol/L Carbon Dioxide 31 (21-32) mmol/L Anion Gap 14.2 H (7-13) mEq/L BUN 57 H (7-18) mg/dL Creatinine 2.57 H (0.55-1.02) mg/dL Est Cr Clr Drug Dosing 12.54 mL/min Estimated GFR (MDRD) 18 Glucose 107 H (74-99) mg/dL POC Glucose 124 H 159 H (83-110) mg/dl Hemoglobin A1c (<5.7) % Calcium 8.6 (8.5-10.1) mg/dL Magnesium (1.8-2.4) mg/dL Creatine Kinase (16-191) U/L TSH, Ultra Sensitive 1.70 (0.36-3.74) uIU/mL 05/15/20 05/15/20 Range/Units 07:51 11:50 Sodium (136-145) mmol/L Potassium (3.5-5.1) mmol/L Chloride (98-107) mmol/L Carbon Dioxide (21-32) mmol/L Anion Gap (7-13) mEq/L BUN (7-18) mg/dL Creatinine (0.55-1.02) mg/dL Est Cr Clr Drug Dosing mL/min Estimated GFR (MDRD) Glucose (74-99) mg/dL POC Glucose 209 H (83-110) mg/dl Hemoglobin A1c 4.9 (<5.7) % Calcium (8.5-10.1) mg/dL Magnesium (1.8-2.4) mg/dL Creatine Kinase (16-191) U/L TSH, Ultra Sensitive (0.36-3.74) uIU/mL Result Diagrams: 05/14/20 11:07 05/15/20 07:51 Jayden Results Last 24 hrs: Microbiology 05/14/20 11:07 Aerobic Blood Culture - Preliminary Blood - Venous - Iv Start NO GROWTH AFTER 1 DAY Anaerobic Blood Culture - Final 05/14/20 11:31 Urine Culture - Preliminary Urine, Quick Cath (In-Out) Sepsis Event Note - Evaluation Sepsis Screening Result: No Definite Risk - Focused Exam Vital Signs: Vital Signs Temp Pulse Resp BP BP Pulse Ox 05/15/20 12:00 98.4 F 79 20 119/52 L 94 L 05/15/20 08:00 99.0 F 85 18 147/63 H 91 L 05/15/20 04:00 98.6 F 77 20 144/50 H 98 - Problem List & Annotations (1) Hip pain SNOMED Code(s): 58485866 Code(s): M25.559 - PAIN IN UNSPECIFIED HIP Status: Acute Priority: Medium Current Visit: Yes - Problem List Review Problem List Initiated/Reviewed/Updated: Yes - My Orders Last 24 Hours: My Active Orders 05/15/20 10:25 Resuscitation Status Routine 05/15/20 10:30 atorvaSTATin [Lipitor] 10 mg PO DAILY 05/15/20 10:35 Morphine 2 mg SUBCUT Q6HR PRN 05/15/20 10:38 RT Post Treatment Assessment [RC] Click to Edit RT Pre-Treatment Assessment [RC] Click to Edit 05/15/20 10:45 Tiotropium [Spiriva HandiHaler] 18 mcg INH DAILY 05/15/20 12:05 Dextrose 50% in Water 50 ml IV Q15M PRN Glucagon,Human Recombinant [GlucaGen] 1 mg IM Q15M PRN 05/15/20 12:45 Insulin Lispro [HumaLOG] See Protocol SUBCUT WITHMEALSANDBED - Plan Plan:: #weakness and LE pain - very difficult exam due to pt lack of cooperation, Her exam is suggestive of Hip FX. later on MRI showed chronic changes without acute FX. XR showed no hip FX. CT scan of hips was ordered to R/O occult FX and also was neg. Morphine was started at lower dose and will titrate to control symptoms. Detailed discussion with pt s and granddaughter ( life trainer): they wish to fullfil her wishes with no code. Later on met with family with RN: family would like to keep her comfortable ( comfort measures chary). OK for medications and ISS. No for PT. They are requesting senior care placement since her is no longer to take care her of home. DM type 2: decrease insulin and DC metformin. Hyperlipemia: DC Lipitor DNR/ comfort care
[2020-05-15] MEDS: Morphine 2 MG/ML SYRINGE IVPUSH PRN ×2 (17:01→21:48)
[2020-05-15] MEDS: BUDESONIDE 0.5 MG/2 ML INH SCH (17:49)
[2020-05-15] MEDS: Aspirin 81 MG Tab.EC PO SCH ×2 (18:01→21:34)
[2020-05-15] MEDS: Latanoprost 0.005% Ophth Soln 2.5 ML Bottle EYEBOTH SCH ×2 (18:02→21:35)
[2020-05-16] MEDS: Morphine 2 MG/ML SYRINGE IVPUSH PRN ×2 (03:11→08:29)
[2020-05-16] MEDS: BUDESONIDE 0.5 MG/2 ML INH SCH ×2 (07:44→17:45)
[2020-05-16] MEDS: Insulin Lispro 100 Units/ML 3 ML Vial SUBCUT SCH ×4 (07:51→21:23)
[2020-05-16] MEDS: LEVODOPA PO SCH ×3 (11:29→17:45)
[2020-05-16] MEDS: CARBIDOPA PO SCH ×3 (11:29→17:45)
[2020-05-16] MEDS: MIDODRINE 5 MG PO SCH ×3 (11:29→17:45)
[2020-05-16] MEDS: atorvaSTATin 10 MG Tab PO SCH (11:30)
[2020-05-16] MEDS: OXYBUTYNIN CHLORIDE 10 MG PO SCH (11:30)
[2020-05-16] MEDS: FLUDROCORTISONE 0.1 MG PO SCH (11:30)
[2020-05-16] MEDS: Tiotropium Inhaler 18 MCG Inhalation Powder Cap Kit of 5 INH SCH (11:30)
[2020-05-16] MEDS: Morphine 10 MG/0.5 ML Oral Syringe SL PRN ×3 (11:48→21:47)
[2020-05-16] MEDS: Acetaminophen 325 MG Tab PO PRN (11:51)
--- NOTE | 2020-05-16 12:38 | PCM.PN ---
- General Info Date of Service: 05/16/20 Functional Status: Reports: Pain Controlled - Review of Systems General: Reports: Fever Pulmonary: Denies: Shortness of Breath Cardiovascular: Denies: Chest Pain Gastrointestinal: Denies: Abdominal Pain Neurological: Reports: Confusion Psychiatric: Reports: Confusion - Patient Data Vitals - Most Recent: Last Vital Signs Temp 99.3 F 05/16/20 08:07 Pulse 73 05/16/20 08:07 Resp 20 05/16/20 08:07 BP 140/43 L 05/16/20 08:07 Pulse Ox 93 L 05/16/20 08:07 Weight - Most Recent: 171 lb 9.6 oz Lab Results Last 24 Hours: Laboratory Results - last 24 hr 05/15/20 05/15/20 05/16/20 Range/Units 17:22 21:17 07:49 POC Glucose 208 H 160 H 137 H (83-110) mg/dl 05/16/20 Range/Units 11:40 POC Glucose 157 H (83-110) mg/dl Jayden Results Last 24 Hours: Microbiology 05/14/20 11:07 Aerobic Blood Culture - Preliminary Blood - Venous - Iv Start NO GROWTH AFTER 2 DAYS Anaerobic Blood Culture - Final 05/14/20 11:31 Urine Culture - Final Urine, Quick Cath (In-Out) Med Orders - Current: Current Medications Acetaminophen (Acetaminophen 325 Mg Tab) 650 mg PO Q4H PRN PRN Reason: Pain (Mild 1-3)/fever Last Admin: 05/16/20 11:51 Dose: 650 mg Documented by: Aspirin (Aspirin 81 Mg Tab.Ec) 81 mg PO BEDTIME [facility] Last Admin: 05/15/20 21:34 Dose: Not Given Documented by: Atorvastatin Calcium (Atorvastatin 10 Mg Tab) 10 mg PO DAILY [facility] Last Admin: 05/16/20 11:30 Dose: Not Given Documented by: Budesonide (Budesonide 0.5 Mg/2 Ml Neb Susp Pt Own Med ) 0.5 mg INH BIDRT [facility] Last Admin: 05/16/20 07:44 Dose: Not Given Documented by: Carbidopa/Levodopa (Carbidopa/Levodopa 25-100 Mg Tab Pt Own Med) 2 tab PO 0800,1200,1800 [facility] Last Admin: 05/16/20 11:29 Dose: Not Given Documented by: Dextrose/Water (50% Dextrose In Water 50 Ml Syringe) 50 ml IV Q15M PRN PRN Reason: Hypoglycemia Fludrocortisone Acetate (Fludrocortisone 0.1 Mg Tab Pt Own Med) 0.1 mg PO DAILY [facility] Last Admin: 05/16/20 11:30 Dose: Not Given Documented by: Glucagon (Glucagon,Human Recombinant 1 Mg Vial) 1 mg IM Q15M PRN PRN Reason: Hypoglycemia Insulin Human Lispro (Insulin Lispro 100 Units/Ml 3 Ml Vial) 0 unit SUBCUT WITHMEALSANDBED [facility]; Protocol Last Admin: 05/16/20 07:51 Dose: Not Given Documented by: Latanoprost (Latanoprost 0.005% Ophth Soln 2.5 Ml Bottle) 0 ml EYEBOTH BEDTIME [facility] Last Admin: 05/15/20 21:35 Dose: Not Given Documented by: Morphine Sulfate (Morphine 2 Mg/Ml Syringe) 1 mg IVPUSH Q2H PRN PRN Reason: Pain Last Admin: 05/16/20 08:29 Dose: 1 mg Documented by: Morphine Sulfate (Morphine 10 Mg/0.5 Ml Oral Syringe) 2 mg SL Q2H PRN PRN Reason: Pain Last Admin: 05/16/20 11:48 Dose: 2 mg Documented by: Midodrine 5 Mg Tablet Pt Own Med* * 5 mg PO TIDMEALS [facility] Last Admin: 05/16/20 11:29 Dose: Not Given Documented by: Oxybutynin Chloride Er 10 Mg Tab.Er Pt Own Med 10 mg PO DAILY [facility] Last Admin: 05/16/20 11:30 Dose: Not Given Documented by: Anastrozole [ Arimidex] 1 Mg Tablet Pt Own Med* * 1 mg PO DAILY@1200 [facility] Last Admin: 05/15/20 12:12 Dose: 1 mg Documented by: Tiotropium [place] (Tiotropium Inhaler 18 Mcg Inhalation Powder Cap Kit Of 5) 18 mcg INH DAILY [facility] Last Admin: 05/16/20 11:30 Dose: Not Given Documented by: Discontinued Medications Budesonide (Budesonide 0.5 Mg/2 Ml Neb Susp) 0.5 mg INH BIDRT [facility] Last Admin: 05/15/20 18:26 Dose: Not Given Documented by: Carbidopa/Levodopa (Carbidopa/Levodopa 25-100 Mg Tab) 2 tab PO TID [facility] Stop: 05/15/20 09:30 Last Admin: 05/15/20 09:20 Dose: 2 tab Documented by: Dextrose/Water (50% Dextrose In Water 50 Ml Syringe) 50 ml IVPUSH ONETIME ONE Stop: 05/14/20 11:07 Last Admin: 05/14/20 11:08 Dose: 50 ml Documented by: Dextrose/Water (50% Dextrose In Water 50 Ml Syringe) Confirm Administered Dose 50 ml .ROUTE .STK-MED ONE Stop: 05/14/20 11:07 Last Admin: 05/14/20 19:26 Dose: Not Given Documented by: Fludrocortisone Acetate (Fludrocortisone 0.1 Mg Tab) 0.1 mg PO ONETIME ONE Stop: 05/15/20 09:01 Last Admin: 05/15/20 09:20 Dose: 0.1 mg Documented by: Gabapentin (Gabapentin 100 Mg Cap) 100 mg PO ONETIME ONE Stop: 05/14/20 15:50 Last Admin: 05/14/20 16:56 Dose: 100 mg Documented by: Heparin Sodium (Porcine) (Heparin Sodium 5,000 Units/Ml Vial) 5,000 units SUBCUT Q8HR [facility] Last Admin: 05/15/20 14:53 Dose: Not Given Documented by: Magnesium Sulfate (Magnesium Sulfate In Water 2 Gm/50 Ml) 2 gm in 50 mls @ 25 mls/hr IV ONETIME ONE Stop: 05/14/20 18:03 Last Infusion: 05/14/20 20:05 Dose: Infused Documented by: Midodrine (Midodrine 2.5 Mg Tab) 5 mg PO TID [facility] Stop: 05/15/20 09:01 Last Admin: 05/15/20 09:19 Dose: 5 mg Documented by: Morphine Sulfate (Morphine 2 Mg/Ml Syringe) 2 mg IVPUSH ONETIME ONE Stop: 05/15/20 09:49 Last Admin: 05/15/20 10:02 Dose: 2 mg Documented by: Morphine Sulfate (Morphine 2 Mg/Ml Syringe) 2 mg SUBCUT Q6HR PRN PRN Reason: Pain Atorvastatin [ Lipitor] 40 Mg Tablet Pt Own Med* * 40 mg PO DAILY [facility] Last Admin: 05/15/20 18:26 Dose: Not Given Documented by: - Exam General: Alert, No Acute Distress Lungs: Clear to Auscultation GI/Abdominal Exam: Soft Extremities: Normal Inspection Skin: Intact Neurological: Other (MINIMALLY COMMUNICATIVE) - Patient Data Lab Results Last 24 hrs: Laboratory Results - last 24 hr 05/15/20 05/15/20 05/16/20 Range/Units 17:22 21:17 07:49 POC Glucose 208 H 160 H 137 H (83-110) mg/dl 05/16/20 Range/Units 11:40 POC Glucose 157 H (83-110) mg/dl Result Diagrams: 05/14/20 11:07 05/15/20 07:51 Jayden Results Last 24 hrs: Microbiology 05/14/20 11:07 Aerobic Blood Culture - Preliminary Blood - Venous - Iv Start NO GROWTH AFTER 2 DAYS Anaerobic Blood Culture - Final 05/14/20 11:31 Urine Culture - Final Urine, Quick Cath (In-Out) Sepsis Event Note - Evaluation Sepsis Screening Result: No Definite Risk - Focused Exam Vital Signs: Vital Signs Temp Pulse Resp BP Pulse Ox 05/16/20 08:07 99.3 F 73 20 140/43 L 93 L - Problem List & Annotations (1) Hip pain SNOMED Code(s): 38501145 Code(s): M25.559 - PAIN IN UNSPECIFIED HIP Status: Acute Priority: Medium Current Visit: Yes - Problem List Review Problem List Initiated/Reviewed/Updated: Yes - My Orders Last 24 Hours: My Active Orders 05/15/20 12:05 Dextrose 50% in Water 50 ml IV Q15M PRN Glucagon,Human Recombinant [GlucaGen] 1 mg IM Q15M PRN 05/15/20 12:45 Insulin Lispro [HumaLOG] See Protocol SUBCUT WITHMEALSANDBED 05/15/20 16:43 Morphine 1 mg IVPUSH Q2H PRN 05/15/20 16:46 Comfort Measures [OM.PC] Routine 05/15/20 17:19 Morphine [Morphine 10 MG/0.5 ML Oral Syringe] 2 mg SL Q2H PRN - Plan Plan:: # DEMENTIA: family are reqyesting comfort care only #weakness and LE pain - very difficult exam due to pt lack of cooperation, No Hip FX on CT later on MRI showed chronic changes without acute FX. XR showed no hip FX. Morphine was started at lower dose and will titrate to control symptoms: switch to sublingual Detailed discussion with pt s and granddaughter ( junior systems engineer): they wish to fullfil her wishes with no code. comfortable ( comfort measures chary). OK for medications and ISS. No for PT. They are requesting halfway placement since her is no longer to take care her of home. Fever: family would like to symptomatic treatment only DM type 2: decrease insulin and DC metformin. Hyperlipemia: DC Lipitor DNR/ comfort care
[2020-05-16] MEDS ORDERED: Acetaminophen 650 MG Supp RECTAL PRN (12:39)
[2020-05-16] MEDS: ANASTROZOLE 1 MG PO SCH (16:22)
[2020-05-16] MEDS ORDERED: Sodium Chloride 0.9% 10 ML Syringe FLUSH PRN (18:26)
[2020-05-16] MEDS: Latanoprost 0.005% Ophth Soln 2.5 ML Bottle EYEBOTH SCH (21:25)
[2020-05-17 07:59] VITALS: BP 143/48; PULSE 77
[2020-05-17] MEDS: BUDESONIDE 0.5 MG/2 ML INH SCH (08:23)
[2020-05-17] MEDS: LEVODOPA PO SCH (09:56)
[2020-05-17] MEDS: CARBIDOPA PO SCH (09:56)
[2020-05-17] MEDS: Insulin Lispro 100 Units/ML 3 ML Vial SUBCUT SCH (09:56)
[2020-05-17] MEDS: MIDODRINE 5 MG PO SCH (09:56)
[2020-05-17] MEDS: OXYBUTYNIN CHLORIDE 10 MG PO SCH (09:57)
[2020-05-17] MEDS: Tiotropium Inhaler 18 MCG Inhalation Powder Cap Kit of 5 INH SCH (09:57)
--- NOTE | 2020-05-17 10:26 | PCM.DCSUM1 ---
Discharge Summary - Hospital Course Free Text/Narrative:: 80F w/ PMH DM2, hx HT but now w/ orthostatic hypotension, hard of hearing, CKD3, depression, left breast ca s/p surgery/XRT/chemo 3y ago, colon ca s/p partial colectomy 1y ago, sq cell carcinoma left nostril 1y ago, chronic hypoxic respiratory failure one home o2 2L p/w weakness. Hx provided by as pt forgetful, confused and hard of hearing. Over past 3y the pt has grown increasingly weak and deconditioned. She uses a cane and cr abs on to wall to ambulate around the house. Doesnt have the strength to use a walker. Uses wheelchair at doctors offices but doesnt have one at home. She is essentially home bound except for doctors visits. Very poor appetite now. provides all care. The day before admission the pt had a normal day. This morning she work up weaker than usual. She could not get out of bed at her usual 8 am. At 830 am she needed to go to the bathroom but could not even sit up in bed. sat her at the edge of the bed and left the room. He was gone appx 2 min. He found her on her bottom, next to the bed, as if she slid off w/ her legs giving out. She was conscious and oriented but extremely weak. checked her saturation and it was 96%. He called EMS because of the weakness. Sometime prior to EMS arrival he decided to still give her the morning dose of lispro insulin but he did not check the FSG. She did not eat that morning. On EMS arrival the pt c/o 'pain all over'. In ED FSG noted to be 45. Pt is profoundly weak, anxious, guards against all movement and exhibits almost myoclonic-like jerking to light touch. This is most pronounced to b/l lower extremity manipulation. She localizes severe pain to b/l thighs. There is no midline spine TTP. #weakness and LE pain - very difficult exam due to pt lack of cooperation, No Hip FX on CT , MRI showed chronic changes without acute FX. XR showed no hip FX. # DEMENTIA: family are reqyesting comfort care only Detailed discussion with pt s and granddaughter (applications support lead): they wish to fulfil her wishes with no code and to proceed with comfortable only. OK for medications and ISS. No for PT. They are requesting assisted placement since her is no longer to take care her of home. Morphine was started at lower dose and will titrate to control symptoms. sublingual Fever: family would like to symptomatic treatment only. Resloved since yesterday. DM type 2: decrease insulin and DC metformin. Hyperkinemia: DC Lipitor DNR/ comfort care - Discharge Data Discharge Date: 05/17/20 Discharge Disposition: DC/Tfer to [facility] Condition: Fair - Referral to Home Health Date of Face to Face Encounter: 05/17/20 Primary Care Physician: Dakota Dotson MD - Discharge Diagnosis/Problem(s) (1) Hip pain SNOMED Code(s): 76995024 ICD Code: M25.559 - PAIN IN UNSPECIFIED HIP Status: Acute Priority: Medium Current Visit: Yes - Patient Summary/Data Consults: Consultations 05/14/20 13:48 PT Evaluation and Treatment [CONS] Routine - Patient Instructions Diet: Regular Diet as Tolerated Activity: Bedrest - Discharge Plan *PRESCRIPTION DRUG MONITORING PROGRAM REVIEWED*: No *COPY OF PRESCRIPTION DRUG MONITORING REPORT IN PATIENT PERICO: No Prescriptions/Med Rec: Carbidopa/Levodopa [Carbidopa-Levodopa 25-100 Tab] 2 tab PO TID 15 Days #90 Acetaminophen [Children's Fever Pulmonary Physician] 120 mg RC QID PRN #60 supp.rect PRN Reason: PAIN OR FEVER Docusate Sodium [Colace] 100 mg PO BID PRN 15 Days #30 PRN Reason: Constipation Albuterol/Ipratropium [DuoNeb 3.0-0.5 MG/3 ML] 3 ml INH TID PRN 15 Days #45 PRN Reason: Dyspnea Insulin Lispro [HumaLOG] See Protocol SUBCUT WITHMEALSANDBED PRN 15 Days #15 vial PRN Reason: Hyperglycemia Insulin Glarg,Human.Rec.Analog [Lantus] 14 units INJECT BEDTIME 15 Days #15 ml Midodrine 5 mg PO TID 15 Days #45 Morphine [Morphine 10 MG/0.5 ML Oral Syringe] 1 mg SL Q2H PRN 15 Days #100 syringe PRN Reason: Pain Oxybutynin Chloride [Oxybutynin Chloride ER] 10 mg PO DAILY 15 Days #15 Acetaminophen [Tylenol] 650 mg PO QID PRN #60 capsule PRN Reason: PAIN OR FEVER Home Medications: Home Meds Aspirin [Halfprin] 81 mg PO BEDTIME 07/03/15 [History] Acetaminophen [Children's Fever Pulmonary Physician] 120 mg RC QID PRN #60 supp.rect 05/17/20 [Rx] Acetaminophen [Tylenol] 650 mg PO QID PRN #60 capsule 05/17/20 [Rx] Albuterol/Ipratropium [DuoNeb 3.0-0.5 MG/3 ML] 3 ml INH TID PRN 15 Days #45 05/17/20 [Rx] Carbidopa/Levodopa [Carbidopa-Levodopa 25-100 Tab] 2 tab PO TID 15 Days #90 05/17/20 [Rx] Docusate Sodium [Colace] 100 mg PO BID PRN 15 Days #30 05/17/20 [Rx] Insulin Glarg,Human.Rec.Analog [Lantus] 14 units INJECT BEDTIME 15 Days #15 ml 05/17/20 [Rx] Insulin Lispro [HumaLOG] See Protocol SUBCUT WITHMEALSANDBED PRN 15 Days #15 vial 05/17/20 [Rx] Latanoprost [Xalatan 0.005% Ophth Soln] 0 ml EYEBOTH BEDTIME bottle 05/17/20 [Rx] Midodrine 5 mg PO TID 15 Days #45 05/17/20 [Rx] Morphine [Morphine 10 MG/0.5 ML Oral Syringe] 1 mg SL Q2H PRN 15 Days #100 syringe 05/17/20 [Rx] Oxybutynin Chloride [Oxybutynin Chloride ER] 10 mg PO DAILY 15 Days #15 05/17/20 [Rx] Referrals: Dakota Dotson MD [Primary Care Provider] - - Discharge Summary/Plan Comment DC Time >30 min.: Yes (exam, planning, meds & DC summary) - General Info Date of Service: 05/17/20 Functional Status: Reports: Pain Controlled, Tolerating Diet - Review of Systems General: Denies: Fever Pulmonary: Denies: Shortness of Breath Cardiovascular: Denies: Chest Pain Gastrointestinal: Denies: Abdominal Pain Neurological: Reports: Confusion, Gait Disturbance Psychiatric: Reports: Confusion - Patient Data Vitals - Most Recent: Last Vital Signs Temp 99.4 F 05/17/20 07:58 Pulse 77 05/17/20 07:58 Resp 20 05/17/20 07:58 BP 143/48 H 05/17/20 07:58 Pulse Ox 94 L 05/17/20 09:00 Weight - Most Recent: 171 lb 9.6 oz I&O - Last 24 hours: Intake & Output 05/16/20 05/17/20 05/17/20 22:59 06:59 14:59 Intake Total 10 Balance 10 Lab Results - Last 24 hrs: Laboratory Results - last 24 hr 05/16/20 05/16/20 05/16/20 Range/Units 11:40 17:08 21:12 POC Glucose 157 H 216 H 252 H (83-110) mg/dl 05/17/20 05/17/20 Range/Units 06:39 07:43 POC Glucose 172 H 187 H (83-110) mg/dl MT Results - Last 24 hrs: Microbiology 05/14/20 11:07 Aerobic Blood Culture - Preliminary Blood - Venous - Iv Start NO GROWTH AFTER 2 DAYS Anaerobic Blood Culture - Final 05/14/20 11:31 Urine Culture - Final Urine, Quick Cath (In-Out) Med Orders - Current: Current Medications Acetaminophen (Acetaminophen 325 Mg Tab) 650 mg PO Q4H PRN PRN Reason: Pain (Mild 1-3)/fever Last Admin: 05/16/20 11:51 Dose: 650 mg Documented by: Acetaminophen (Acetaminophen 650 Mg Supp) 650 mg RECTAL Q4H PRN PRN Reason: pain or fever Budesonide (Budesonide 0.5 Mg/2 Ml Neb Susp Pt Own Med ) 0.5 mg INH BIDRT [facility] Last Admin: 05/17/20 08:23 Dose: Not Given Documented by: Carbidopa/Levodopa (Carbidopa/Levodopa 25-100 Mg Tab Pt Own Med) 2 tab PO 0800,1200,1800 [facility] Last Admin: 05/17/20 09:56 Dose: Not Given Documented by: Dextrose/Water (50% Dextrose In Water 50 Ml Syringe) 50 ml IV Q15M PRN PRN Reason: Hypoglycemia Glucagon (Glucagon,Human Recombinant 1 Mg Vial) 1 mg IM Q15M PRN PRN Reason: Hypoglycemia Insulin Human Lispro (Insulin Lispro 100 Units/Ml 3 Ml Vial) 0 unit SUBCUT WITHMEALSANDBED [facility]; Protocol Last Admin: 05/17/20 09:56 Dose: Not Given Documented by: Latanoprost (Latanoprost 0.005% Ophth Soln 2.5 Ml Bottle) 0 ml EYEBOTH BEDTIME [facility] Last Admin: 05/16/20 21:25 Dose: Not Given Documented by: Morphine Sulfate (Morphine 10 Mg/0.5 Ml Oral Syringe) 2 mg SL Q2H PRN PRN Reason: Pain Last Admin: 05/16/20 21:47 Dose: 2 mg Documented by: Midodrine 5 Mg Tablet Pt Own Med* * 5 mg PO TIDMEALS [facility] Last Admin: 05/17/20 09:56 Dose: Not Given Documented by: Oxybutynin Chloride Er 10 Mg Tab.Er Pt Own Med 10 mg PO DAILY [facility] Last Admin: 05/17/20 09:57 Dose: Not Given Documented by: Sodium Chloride (Sodium Chloride 0.9% 10 Ml Syringe) 10 ml FLUSH ASDIRECTED PRN PRN Reason: Keep Vein Open Tiotropium [place] (Tiotropium Inhaler 18 Mcg Inhalation Powder Cap Kit Of 5) 18 mcg INH DAILY [facility] Last Admin: 05/17/20 09:57 Dose: Not Given Documented by: Discontinued Medications Aspirin (Aspirin 81 Mg Tab.Ec) 81 mg PO BEDTIME [facility] Last Admin: 05/15/20 21:34 Dose: Not Given Documented by: Atorvastatin Calcium (Atorvastatin 10 Mg Tab) 10 mg PO DAILY [facility] Last Admin: 05/16/20 11:30 Dose: Not Given Documented by: Budesonide (Budesonide 0.5 Mg/2 Ml Neb Susp) 0.5 mg INH BIDRT [facility] Last Admin: 05/15/20 18:26 Dose: Not Given Documented by: Carbidopa/Levodopa (Carbidopa/Levodopa 25-100 Mg Tab) 2 tab PO TID JAVON Stop: 05/15/20 09:30 Last Admin: 05/15/20 09:20 Dose: 2 tab Documented by: Dextrose/Water (50% Dextrose In Water 50 Ml Syringe) 50 ml IVPUSH ONETIME ONE Stop: 05/14/20 11:07 Last Admin: 05/14/20 11:08 Dose: 50 ml Documented by: Dextrose/Water (50% Dextrose In Water 50 Ml Syringe) Confirm Administered Dose 50 ml .ROUTE .STK-MED ONE Stop: 05/14/20 11:07 Last Admin: 05/14/20 19:26 Dose: Not Given Documented by: Fludrocortisone Acetate (Fludrocortisone 0.1 Mg Tab Pt Own Med) 0.1 mg PO DAILY [facility] Last Admin: 05/16/20 11:30 Dose: Not Given Documented by: Fludrocortisone Acetate (Fludrocortisone 0.1 Mg Tab) 0.1 mg PO ONETIME ONE Stop: 05/15/20 09:01 Last Admin: 05/15/20 09:20 Dose: 0.1 mg Documented by: Gabapentin (Gabapentin 100 Mg Cap) 100 mg PO ONETIME ONE Stop: 05/14/20 15:50 Last Admin: 05/14/20 16:56 Dose: 100 mg Documented by: Heparin Sodium (Porcine) (Heparin Sodium 5,000 Units/Ml Vial) 5,000 units SUBCUT Q8HR [facility] Last Admin: 05/15/20 14:53 Dose: Not Given Documented by: Magnesium Sulfate (Magnesium Sulfate In Water 2 Gm/50 Ml) 2 gm in 50 mls @ 25 mls/hr IV ONETIME ONE Stop: 05/14/20 18:03 Last Infusion: 05/14/20 20:05 Dose: Infused Documented by: Midodrine (Midodrine 2.5 Mg Tab) 5 mg PO TID [facility] Stop: 05/15/20 09:01 Last Admin: 05/15/20 09:19 Dose: 5 mg Documented by: Morphine Sulfate (Morphine 2 Mg/Ml Syringe) 2 mg IVPUSH ONETIME ONE Stop: 05/15/20 09:49 Last Admin: 05/15/20 10:02 Dose: 2 mg Documented by: Morphine Sulfate (Morphine 2 Mg/Ml Syringe) 2 mg SUBCUT Q6HR PRN PRN Reason: Pain Morphine Sulfate (Morphine 2 Mg/Ml Syringe) 1 mg IVPUSH Q2H PRN PRN Reason: Pain Last Admin: 05/16/20 08:29 Dose: 1 mg Documented by: Atorvastatin [ Lipitor] 40 Mg Tablet Pt Own Med* * 40 mg PO DAILY [facility] Last Admin: 05/15/20 18:26 Dose: Not Given Documented by: Anastrozole [ Arimidex] 1 Mg Tablet Pt Own Med* * 1 mg PO DAILY@1200 [facility] Last Admin: 05/16/20 16:22 Dose: Not Given Documented by: - Exam Quality Assessment: Reports: Supplemental Oxygen General: Reports: Alert. Denies: Cooperative HEENT: Reports: EOMI Lungs: Reports: Clear to Auscultation Cardiovascular: Reports: Regular Rate, Regular Rhythm GI/Abdominal Exam: Soft, Non-Tender Rectal (Female) Exam: Deferred Extremities: Normal Inspection Skin: Reports: Intact
== END 2020-05-17 11:35 ==
LOC: DL.ED 11:07 → DL.MS 12:43 → DL.ED 13:10
PROVIDERS: ADMIT Internal Medicine; ATTEND Internal Medicine
DX: R53.1 Weakness (principal); M79.652 Pain in left thigh; M79.651 Pain in right thigh; E16.2 Hypoglycemia, unspecified; E11.22 Type 2 diabetes mellitus with diabetic chronic kidney disease; I12.9 Hypertensive chronic kidney disease with stage 1 through stage 4 chronic kidney disease, or unspecified chronic kidney disease; N18.30 Chronic kidney disease, stage 3 unspecified; E78.00 Pure hypercholesterolemia, unspecified; J44.9 Chronic obstructive pulmonary disease, unspecified; E66.9 Obesity, unspecified; Z68.37 Body mass index [BMI] 37.0-37.9, adult; G20 Parkinson's disease; R29.2 Abnormal reflex; I95.1 Orthostatic hypotension; J96.11 Chronic respiratory failure with hypoxia; Z20.822 Contact with and (suspected) exposure to COVID-19; Z88.0 Allergy status to penicillin; Z88.1 Allergy status to other antibiotic agents; Z88.2 Allergy status to sulfonamides; Z88.8 Allergy status to other drugs, medicaments and biological substances; Z79.4 Long term (current) use of insulin; Z79.899 Other long term (current) drug therapy; Z85.3 Personal history of malignant neoplasm of breast; Z85.038 Personal history of other malignant neoplasm of large intestine; Z85.22 Personal history of malignant neoplasm of nasal cavities, middle ear, and accessory sinuses; Z99.81 Dependence on supplemental oxygen; Z98.890 Other specified postprocedural states
CPT/HCPCS: 0240U; 36415; 72148; 73521; 73700; 80048; 80053; 81001; 82550; 82962; 83036; 83605; 83735; 84443; 85025; 87040; 87086; 96374; 99284; 99285; A9270; J1644; J1815; J2270; J3475; 96365; 96366; 96372; 96375; 96376; 99217; 99220; 99225; G0378